=== PATIENT | male | born 1970 | race African-American/Black ===

== ENCOUNTER 2017-03-10 11:00 | Inpatient (IN) | payer OTHER ==
[~2017-03-10] VITALS: Ht 180.3 cm; Wt 98.4 kg
[~2017-03-10 11:00] MED LIST: AMLO10TA80; ASPI-1158; ATOR10TA69; CLON0.2T; DILT360C27 PO; HYDR100T31; MINO2.5T19; QUET100T PO
[2017-03-10] MEDS ORDERED: ONDANSETRON HCL 4MG/2ML VIAL IV STA (11:19)
[2017-03-10] MEDS ORDERED: MORPHINE SULFATE 4 MG/ML CPJ (NOT FOR IM USE) IV STA (11:19)
[2017-03-10] MEDS ORDERED: DILTIAZEM HCL 30MG TABLET PO ONE (11:30)
[2017-03-10] MEDS ORDERED: DILTIAZEM HCL 5MG/ML 5ML VIAL IV ONE (11:30)
[2017-03-10] MEDS ORDERED: IPRATROPIUM BROMIDE (0.02%) 0.5MG/2.5ML NEB HHN ONE (12:15)
[2017-03-10 12:25] LABS: HEMATOCRIT. 30.6 % (42.0-52.0); HEMOGLOBIN. 10.1 g/dL (14.0-18.0); MEAN CORPUSCULAR HEMOGLOBIN 23.8 pg (28.0-32.0); MEAN CORPUSCULAR VOLUME 72.4 fL (80.0-94.0); MEAN PLATELET VOLUME 8.5 fl (7.4-10.4); PLATELET 157 x1000/uL (130-400); RED BLOOD CELL COUNT 4.23 mill/uL (4.7-6.1); RED CELL DISTRIBUTION WIDTH 18.1 % (11.6-14.6)
[2017-03-10 12:34] LABS: INR 1.2; PARTIAL THROMBOPLASTIN TIME 30.3 sec (24.0-34.0); PROTHROMBIN TIME 12.7 sec
[2017-03-10 12:41] LABS: BG BASE EXCESS 1.3 mmol/L (-2.0-2.0); BG CARBOXYHEMOGLOBIN 0.8 % (0.5-1.5); BG DEOXYHEMOGLOBIN 5.7 % (0.0-5.0); BG FRACTION INSPIRED OXYGEN 50; BG HCO3 ACT 25.8 mmol/L (22.0-26.0); BG METHEMOGLOBIN 0.3 % (0.0-1.5); BG OXYGEN SATURATION 94.2 % (92.0-98.5); BG OXYHEMOGLOBIN 93.2 % (94.0-97.0); BG PCO2 40.2 mmHg (35.0-45.0); BG PH 7.425 (7.350-7.450); BG PO2 81.5 mmHg (75.0-100.0); BG SAMPLE SITE LEFT BRACHIAL; BG TOTAL HEMOGLOBIN 10.4 g/dL (12.0-18.0)
[2017-03-10 12:43] LABS: CARBON DIOXIDE 29 mEq/L (21-32); CHLORIDE 99 mEq/L (98-107); CREATINE KINASE 203 IU/L (39-308); TROPONIN I 0.09 ng/mL (0.00-0.04)
[2017-03-10 13:05] LABS: PLATELET ESTIMATE NORMAL
[2017-03-10] MEDS ORDERED: VANCOMYCIN 1 G PREMIX 200 ML IV ONE (13:45)
[2017-03-10] MEDS ORDERED: PIPERACILLIN/TAZ 3.375G PREMIX 50 ML IV ONE (13:45)
[2017-03-10] MEDS ORDERED: HYDROCODONE/ACETAMINOPHEN 5/325MG TABLET PO NR (16:45)
[2017-03-10 18:00] VITALS: BP 113/66
[2017-03-10] MEDS: DILTIAZEM HCL 60MG TABLET PO SCH (18:00)
[2017-03-10] MEDS ORDERED: ONDANSETRON HCL 4MG/2ML VIAL IV PRN (19:00)
[2017-03-10] MEDS ORDERED: ALBUMIN HUMAN 25GM/100ML (25%) IV NR (19:30)
[2017-03-10] MEDS ORDERED: DEXTROSE 50% WATER 50ML SYRINGE IV PRN (20:00)
[2017-03-10] MEDS: INSULIN LISPRO 100 UNITS/ML SUBCUT SCH (21:00)
[2017-03-10] MEDS ORDERED: VANCOMYCIN 1500MG in DEXTROSE 5% WATER 250ML IV NR (21:00)
[2017-03-10] MEDS: ACETAMINOPHEN 325MG TABLET PO PRN (21:14)
[2017-03-10] MEDS: ATORVASTATIN CALCIUM 10MG TABLET PO SCH (21:15)
[2017-03-10] MEDS: PIPERACILLIN/TAZ 2.25G PREMIX 50 ML IV SCH (21:15)
[2017-03-10] MEDS: BLOOD SUGAR DIAGNOSTIC STRIP TEST SCH (21:26)
[2017-03-10 22:00] VITALS: BP 121/66
[2017-03-10] MEDS: MORPHINE SULFATE 4 MG/ML CPJ (NOT FOR IM USE) IV PRN (22:44)
[2017-03-10 23:00] VITALS: BP 107/75
[2017-03-10] MEDS: IPRATROPIUM/ALBUTEROL 0.5-3(2.5)MG/3ML NEB INH PRN (23:57)
[2017-03-11] VITALS (24 sets, daily range): BP systolic 88–139; BP diastolic 48–95
[2017-03-11] MEDS: ACETAMINOPHEN 325MG TABLET PO PRN ×2 (01:31→17:22)
[2017-03-11] MEDS ORDERED: FILGRASTIM 300 MCG/ML VIAL SUBCUT ONE (02:30)
[2017-03-11] MEDS: MORPHINE SULFATE 4 MG/ML CPJ (NOT FOR IM USE) IV PRN ×4 (02:31→20:08)
[2017-03-11] MEDS: DILTIAZEM HCL 60MG TABLET PO SCH ×6 (06:00→23:16)
[2017-03-11 06:44] LABS: HEMATOCRIT. 28.3 % (42.0-52.0); HEMOGLOBIN. 9.1 g/dL (14.0-18.0); MEAN CORPUSCULAR HEMOGLOBIN 23.7 pg (28.0-32.0); MEAN CORPUSCULAR VOLUME 73.8 fL (80.0-94.0); MEAN PLATELET VOLUME 9.4 fl (7.4-10.4); PLATELET 112 x1000/uL (130-400); RED BLOOD CELL COUNT 3.83 mill/uL (4.7-6.1); RED CELL DISTRIBUTION WIDTH 18.2 % (11.6-14.6)
[2017-03-11 06:55] LABS: TROPONIN I 0.07 ng/mL (0.00-0.04)
[2017-03-11 07:13] LABS: PROSTRATE SPECIFIC AG TOTAL 0.32 ng/mL (0.0-4.0)
[2017-03-11] MEDS: IPRATROPIUM/ALBUTEROL 0.5-3(2.5)MG/3ML NEB INH PRN ×2 (07:25→14:55)
[2017-03-11 07:44] LABS: FOLIC ACID (FOLATE) SERUM 5.2 ng/mL (>5.38)
[2017-03-11] MEDS: INSULIN LISPRO 100 UNITS/ML SUBCUT SCH ×4 (08:00→21:00)
[2017-03-11] MEDS: BLOOD SUGAR DIAGNOSTIC STRIP TEST SCH ×4 (08:10→21:00)
[2017-03-11] MEDS: PIPERACILLIN/TAZ 2.25G PREMIX 50 ML IV SCH ×2 (08:22→20:09)
[2017-03-11] MEDS: MINOXIDIL 2.5MG TABLET PO SCH ×2 (08:22→16:23)
[2017-03-11] MEDS ORDERED: ASPIRIN 81MG EC TABLET PO SCH (09:00)
[2017-03-11] MEDS ORDERED: ASPIRIN 81MG TABLET PO SCH (09:00)
[2017-03-11 10:49] LABS: PLATELET ESTIMATE DECREASED
[2017-03-11] MEDS: ATORVASTATIN CALCIUM 10MG TABLET PO SCH (20:09)
[2017-03-11] MEDS: QUETIAPINE FUMARATE 100MG TABLET PO SCH (20:09)
[2017-03-12] VITALS (19 sets, daily range): BP systolic 94–167; BP diastolic 55–140
[2017-03-12] MEDS: MORPHINE SULFATE 4 MG/ML CPJ (NOT FOR IM USE) IV PRN ×3 (05:29→19:48)
[2017-03-12] MEDS: DILTIAZEM HCL 60MG TABLET PO SCH ×3 (05:30→17:52)
[2017-03-12 06:39] LABS: BASOPHILS % 0.6 % (0.0-2.0); EOSINOPHILS % 0.8 % (0.0-5.0); HEMOGLOBIN. 8.3 g/dL (14.0-18.0); LYMPHOCYTES % 9.3 % (20.0-50.0); MEAN CORPUSCULAR HEMOGLOBIN 23.2 pg (28.0-32.0); MEAN CORPUSCULAR VOLUME 73.1 fL (80.0-94.0); MEAN PLATELET VOLUME 9.5 fl (7.4-10.4); MONOCYTES % 8.1 % (2.0-8.0); NEUTROPHILS % 81.2 % (40.0-76.0); PLATELET 115 x1000/uL (130-400); RED BLOOD CELL COUNT 3.56 mill/uL (4.7-6.1); RED CELL DISTRIBUTION WIDTH 17.9 % (11.6-14.6)
[2017-03-12] MEDS: IPRATROPIUM/ALBUTEROL 0.5-3(2.5)MG/3ML NEB INH PRN ×3 (07:23→20:24)
[2017-03-12] MEDS: BLOOD SUGAR DIAGNOSTIC STRIP TEST SCH ×4 (07:30→21:22)
[2017-03-12] MEDS: INSULIN LISPRO 100 UNITS/ML SUBCUT SCH ×4 (08:00→21:00)
[2017-03-12] MEDS: MINOXIDIL 2.5MG TABLET PO SCH ×2 (09:00→17:51)
[2017-03-12] MEDS: PIPERACILLIN/TAZ 2.25G PREMIX 50 ML IV SCH ×2 (09:57→20:50)
[2017-03-12] MEDS ORDERED: LACTULOSE 20G/30ML UDC PO NR (13:00)
[2017-03-12] MEDS ORDERED: DILTIAZEM HCL 5MG/ML 5ML VIAL IV NR (13:00)
[2017-03-12] MEDS ORDERED: DOCUSATE SODIUM 250MG CAPSULE PO PRN (13:00)
[2017-03-12] MEDS ORDERED: VANCOMYCIN 1 G PREMIX 200 ML IV SCH (14:00)
[2017-03-12] MEDS: QUETIAPINE FUMARATE 100MG TABLET PO SCH (17:52)
[2017-03-12] MEDS: ATORVASTATIN CALCIUM 10MG TABLET PO SCH (20:50)
[2017-03-12] MEDS: ACETAMINOPHEN 325MG TABLET PO PRN (22:36)
[2017-03-13] VITALS (50 sets, daily range): BP systolic 110–181; BP diastolic 72–131
[2017-03-13] MEDS: DILTIAZEM HCL 60MG TABLET PO SCH ×3 (00:04→14:06)
[2017-03-13] MEDS: MORPHINE SULFATE 4 MG/ML CPJ (NOT FOR IM USE) IV PRN ×5 (00:04→20:13)
[2017-03-13] MEDS: DILTIAZEM HCL 5MG/ML 5ML VIAL IV PRN ×2 (01:33→06:45)
[2017-03-13] MEDS: IPRATROPIUM/ALBUTEROL 0.5-3(2.5)MG/3ML NEB INH PRN ×2 (04:12)
[2017-03-13 06:30] LABS: BASOPHILS % 1.2 % (0.0-2.0); EOSINOPHILS % 2.2 % (0.0-5.0); HEMATOCRIT. 26.4 % (42.0-52.0); HEMOGLOBIN. 8.6 g/dL (14.0-18.0); LYMPHOCYTES % 10.5 % (20.0-50.0); MEAN CORPUSCULAR HEMOGLOBIN 23.7 pg (28.0-32.0); MEAN CORPUSCULAR VOLUME 72.8 fL (80.0-94.0); MONOCYTES % 6.5 % (2.0-8.0); NEUTROPHILS % 79.6 % (40.0-76.0); PLATELET 119 x1000/uL (130-400); RED BLOOD CELL COUNT 3.62 mill/uL (4.7-6.1)
[2017-03-13] MEDS: BLOOD SUGAR DIAGNOSTIC STRIP TEST SCH ×4 (07:30→21:30)
[2017-03-13 07:51] LABS: HEPATITIS B CORE AB IGM NEGATIVE
[2017-03-13 07:52] LABS: HEPATITIS A AB IGM NEGATIVE (NEGATIVE)
[2017-03-13] MEDS: INSULIN LISPRO 100 UNITS/ML SUBCUT SCH ×4 (08:00→21:00)
[2017-03-13 08:03] LABS: HEPATITIS B SURFACE ANTIGEN NEGATIVE
[2017-03-13] MEDS: PIPERACILLIN/TAZ 2.25G PREMIX 50 ML IV SCH ×2 (08:44→21:30)
[2017-03-13] MEDS: MINOXIDIL 2.5MG TABLET PO SCH ×2 (08:45→18:49)
[2017-03-13] MEDS: DILTIAZEM HCL 125 MG in DEXT 5% WATER 100 ML IV SCH (16:03)
[2017-03-13] MEDS: QUETIAPINE FUMARATE 100MG TABLET PO SCH (18:50)
[2017-03-13] MEDS: ATORVASTATIN CALCIUM 10MG TABLET PO SCH (21:30)
[2017-03-14] VITALS (13 sets, daily range): BP systolic 134–174; BP diastolic 86–130
[2017-03-14] MEDS: MORPHINE SULFATE 4 MG/ML CPJ (NOT FOR IM USE) IV PRN ×5 (01:04→21:53)
[2017-03-14] MEDS: DILTIAZEM HCL 125 MG in DEXT 5% WATER 100 ML IV SCH (03:26)
[2017-03-14 06:54] LABS: BASOPHILS % 0.9 % (0.0-2.0); EOSINOPHILS % 1.8 % (0.0-5.0); HEMATOCRIT. 27.7 % (42.0-52.0); HEMOGLOBIN. 9.2 g/dL (14.0-18.0); LYMPHOCYTES % 10.7 % (20.0-50.0); MEAN CORPUSCULAR HEMOGLOBIN 23.9 pg (28.0-32.0); MEAN CORPUSCULAR VOLUME 71.6 fL (80.0-94.0); MEAN PLATELET VOLUME 9.2 fl (7.4-10.4); MONOCYTES % 4.5 % (2.0-8.0); NEUTROPHILS % 82.1 % (40.0-76.0); PLATELET 127 x1000/uL (130-400); RED BLOOD CELL COUNT 3.86 mill/uL (4.7-6.1); RED CELL DISTRIBUTION WIDTH 17.7 % (11.6-14.6)
[2017-03-14] MEDS: INSULIN LISPRO 100 UNITS/ML SUBCUT SCH ×4 (08:00→21:00)
[2017-03-14] MEDS: BLOOD SUGAR DIAGNOSTIC STRIP TEST SCH ×4 (08:09→20:38)
[2017-03-14] MEDS: PIPERACILLIN/TAZ 2.25G PREMIX 50 ML IV SCH ×2 (08:15→20:38)
[2017-03-14] MEDS: MINOXIDIL 2.5MG TABLET PO SCH ×2 (08:15→17:06)
[2017-03-14] MEDS: DILTIAZEM HCL 60MG TABLET PO SCH ×2 (15:06→21:53)
[2017-03-14] MEDS: CLONIDINE 0.1MG TABLET PO PRN ×3 (15:07→20:38)
[2017-03-14] MEDS: QUETIAPINE FUMARATE 100MG TABLET PO SCH (17:06)
[2017-03-14] MEDS: ATORVASTATIN CALCIUM 10MG TABLET PO SCH (20:38)
[2017-03-14] MEDS: ACETAMINOPHEN 325MG TABLET PO PRN (22:19)
[2017-03-15] VITALS (15 sets, daily range): BP systolic 134–189; BP diastolic 67–129
[2017-03-15] MEDS: DILTIAZEM HCL 60MG TABLET PO SCH (06:04)
[2017-03-15] MEDS: MORPHINE SULFATE 4 MG/ML CPJ (NOT FOR IM USE) IV PRN ×3 (06:19→16:21)
[2017-03-15] MEDS: BLOOD SUGAR DIAGNOSTIC STRIP TEST SCH ×4 (07:30→20:20)
[2017-03-15 07:38] LABS: BASOPHILS % 0.9 % (0.0-2.0); EOSINOPHILS % 2.8 % (0.0-5.0); HEMATOCRIT. 28.8 % (42.0-52.0); HEMOGLOBIN. 9.5 g/dL (14.0-18.0); LYMPHOCYTES % 14.5 % (20.0-50.0); MEAN CORPUSCULAR HEMOGLOBIN 23.9 pg (28.0-32.0); MEAN CORPUSCULAR VOLUME 72.5 fL (80.0-94.0); MEAN PLATELET VOLUME 9.1 fl (7.4-10.4); MONOCYTES % 7.5 % (2.0-8.0); NEUTROPHILS % 74.3 % (40.0-76.0); PLATELET 134 x1000/uL (130-400); RED BLOOD CELL COUNT 3.96 mill/uL (4.7-6.1); RED CELL DISTRIBUTION WIDTH 17.9 % (11.6-14.6)
[2017-03-15] MEDS: INSULIN LISPRO 100 UNITS/ML SUBCUT SCH ×4 (08:00→20:20)
[2017-03-15] MEDS: MINOXIDIL 2.5MG TABLET PO SCH ×2 (08:27→16:26)
[2017-03-15] MEDS: PIPERACILLIN/TAZ 2.25G PREMIX 50 ML IV SCH ×2 (08:28→20:15)
[2017-03-15] MEDS ORDERED: SODIUM POLYSTYRENE SULFONATE 15 G/60 ML BOT PO NR (10:45)
[2017-03-15] MEDS: DILTIAZEM HCL 90MG TABLET PO SCH ×2 (13:44→18:17)
[2017-03-15] MEDS: QUETIAPINE FUMARATE 100MG TABLET PO SCH (16:30)
[2017-03-15] MEDS: ATORVASTATIN CALCIUM 10MG TABLET PO SCH (20:15)
[2017-03-15] MEDS: CLONIDINE 0.1MG TABLET PO PRN (20:15)
[2017-03-15] MEDS ORDERED: DILTIAZEM HCL 125 MG in DEXT 5% WATER 100 ML IV PRN (20:45)
[2017-03-15] MEDS ORDERED: DIGOXIN 500MCG/2ML AMP IV NR (23:15)
[2017-03-15] MEDS: MORPHINE SULFATE 2 MG/ML CPJ (NOT FOR IM USE) IV PRN (23:32)
[2017-03-16] VITALS (30 sets, daily range): BP systolic 128–196; BP diastolic 81–140
[2017-03-16] MEDS ORDERED: CEFTRIAXONE 2 G PREMIX 50 ML IV SCH (01:00)
[2017-03-16] MEDS: MORPHINE SULFATE 2 MG/ML CPJ (NOT FOR IM USE) IV PRN ×4 (04:06→22:46)
[2017-03-16 06:00] LABS: HEMATOCRIT. 28.2 % (42.0-52.0); HEMOGLOBIN. 9.3 g/dL (14.0-18.0); MEAN CORPUSCULAR HEMOGLOBIN 23.8 pg (28.0-32.0); MEAN CORPUSCULAR VOLUME 72.3 fL (80.0-94.0); MEAN PLATELET VOLUME 9.6 fl (7.4-10.4); PLATELET 138 x1000/uL (130-400); RED CELL DISTRIBUTION WIDTH 18.1 % (11.6-14.6)
[2017-03-16] MEDS: DILTIAZEM HCL 125 MG in DEXT 5% WATER 100 ML IV PRN (06:50)
[2017-03-16] MEDS: ACETAMINOPHEN 325MG TABLET PO PRN (06:50)
[2017-03-16] MEDS: BLOOD SUGAR DIAGNOSTIC STRIP TEST SCH ×4 (07:30→21:00)
[2017-03-16] MEDS: INSULIN LISPRO 100 UNITS/ML SUBCUT SCH ×4 (07:39→21:00)
[2017-03-16] MEDS: MINOXIDIL 2.5MG TABLET PO SCH ×2 (09:00→13:18)
[2017-03-16] MEDS: CLONIDINE 0.1MG TABLET PO PRN (13:19)
[2017-03-16] MEDS: METOPROLOL TARTRATE 50MG TABLET PO SCH ×2 (14:44→20:55)
[2017-03-16] MEDS: CLONIDINE 0.2MG TABLET PO SCH ×2 (14:44→20:55)
[2017-03-16 15:15] LABS: PLATELET ESTIMATE NORMAL
[2017-03-16] MEDS: QUETIAPINE FUMARATE 100MG TABLET PO SCH (17:45)
[2017-03-16] MEDS: ATORVASTATIN CALCIUM 10MG TABLET PO SCH (20:54)
[2017-03-17] VITALS (12 sets, daily range): BP systolic 131–175; BP diastolic 90–108
[2017-03-17] MEDS: CEFTRIAXONE 2 G in DEXTROSE 5% WATER 50 ML IV SCH (01:07)
[2017-03-17] MEDS: DILTIAZEM HCL 125 MG in DEXT 5% WATER 100 ML IV PRN (01:10)
[2017-03-17] MEDS: MORPHINE SULFATE 2 MG/ML CPJ (NOT FOR IM USE) IV PRN ×4 (03:05→22:32)
[2017-03-17] MEDS: CLONIDINE 0.2MG TABLET PO SCH ×3 (06:09→21:52)
[2017-03-17] MEDS: CLONIDINE 0.1MG TABLET PO PRN (06:09)
[2017-03-17] MEDS: INSULIN LISPRO 100 UNITS/ML SUBCUT SCH ×4 (08:00→21:00)
[2017-03-17] MEDS: METOPROLOL TARTRATE 50MG TABLET PO SCH (08:17)
[2017-03-17] MEDS: BLOOD SUGAR DIAGNOSTIC STRIP TEST SCH ×4 (08:17→21:52)
[2017-03-17] MEDS: MINOXIDIL 2.5MG TABLET PO SCH ×2 (08:17→17:41)
[2017-03-17] MEDS: DILTIAZEM HCL 90MG TABLET PO SCH ×2 (13:00→17:41)
[2017-03-17 15:26] LABS: HEMATOCRIT. 28.8 % (42.0-52.0); HEMOGLOBIN. 9.6 g/dL (14.0-18.0); MEAN CORPUSCULAR VOLUME 71.9 fL (80.0-94.0); MEAN PLATELET VOLUME 9.4 fl (7.4-10.4); PLATELET 161 x1000/uL (130-400); RED CELL DISTRIBUTION WIDTH 18.2 % (11.6-14.6)
[2017-03-17 16:47] LABS: PLATELET ESTIMATE NORMAL
[2017-03-17] MEDS: DIGOXIN 125MCG TABLET PO SCH (17:41)
[2017-03-17] MEDS: QUETIAPINE FUMARATE 100MG TABLET PO SCH (17:41)
[2017-03-17] MEDS: ATORVASTATIN CALCIUM 10MG TABLET PO SCH (21:51)
[2017-03-17] MEDS: METOPROLOL TARTRATE 100MG TABLET PO SCH (21:52)
[2017-03-18] VITALS (17 sets, daily range): BP systolic 112–156; BP diastolic 67–99
[2017-03-18] MEDS: DILTIAZEM HCL 90MG TABLET PO SCH ×5 (00:29→23:54)
[2017-03-18] MEDS: CEFTRIAXONE 2 G in DEXTROSE 5% WATER 50 ML IV SCH ×2 (00:30→23:56)
[2017-03-18] MEDS: MORPHINE SULFATE 2 MG/ML CPJ (NOT FOR IM USE) IV PRN ×5 (04:53→23:53)
[2017-03-18] MEDS: CLONIDINE 0.2MG TABLET PO SCH ×3 (06:16→22:43)
[2017-03-18 06:44] LABS: HEMATOCRIT. 25.3 % (42.0-52.0); HEMOGLOBIN. 8.5 g/dL (14.0-18.0); MEAN CORPUSCULAR HEMOGLOBIN 23.9 pg (28.0-32.0); MEAN CORPUSCULAR VOLUME 71.1 fL (80.0-94.0); MEAN PLATELET VOLUME 9.2 fl (7.4-10.4); PLATELET 152 x1000/uL (130-400); RED BLOOD CELL COUNT 3.56 mill/uL (4.7-6.1); RED CELL DISTRIBUTION WIDTH 17.8 % (11.6-14.6)
[2017-03-18] MEDS: INSULIN LISPRO 100 UNITS/ML SUBCUT SCH ×4 (08:00→21:00)
[2017-03-18] MEDS: BLOOD SUGAR DIAGNOSTIC STRIP TEST SCH ×4 (08:17→21:00)
[2017-03-18] MEDS: MINOXIDIL 2.5MG TABLET PO SCH ×2 (08:22→18:33)
[2017-03-18] MEDS: METOPROLOL TARTRATE 100MG TABLET PO SCH ×2 (08:23→21:32)
[2017-03-18] MEDS ORDERED: LIDOCAINE HCL 1% 20ML VIAL (Pyxis) INJ ONE (09:00)
[2017-03-18] MEDS ORDERED: SODIUM BICARBONATE 4% (2.4MEQ) 5ML VIAL IV ONE (09:01)
[2017-03-18] MEDS ORDERED: IOHEXOL-300 100 ML BOTTLE ONE (09:01)
[2017-03-18] MEDS ORDERED: CEFAZOLIN 1000MG PREMIX 50 ML IV ONE ×2 (09:03→10:00)
[2017-03-18] MEDS ORDERED: DIPHENHYDRAMINE 50MG/ML VIAL ONE (09:04)
[2017-03-18] MEDS ORDERED: FENTANYL CITRATE/PF 50MCG/ML 2ML VIAL ONE (09:04)
[2017-03-18] MEDS ORDERED: DIPHENHYDRAMINE 50MG/ML VIAL IV ONE (10:00)
[2017-03-18] MEDS ORDERED: FENTANYL CITRATE/PF 50MCG/ML 2ML VIAL IV ONE (10:00)
[2017-03-18 14:34] LABS: PLATELET ESTIMATE NORMAL
[2017-03-18] MEDS: DIGOXIN 125MCG TABLET PO SCH (18:33)
[2017-03-18] MEDS: QUETIAPINE FUMARATE 100MG TABLET PO SCH (18:33)
[2017-03-18] MEDS: ATORVASTATIN CALCIUM 10MG TABLET PO SCH (21:31)
[2017-03-18] MEDS: ACETAMINOPHEN 325MG TABLET PO PRN (23:54)
[2017-03-19] VITALS (12 sets, daily range): BP systolic 117–145; BP diastolic 64–92
[2017-03-19] MEDS: DILTIAZEM HCL 90MG TABLET PO SCH ×4 (05:38→23:47)
[2017-03-19] MEDS: CLONIDINE 0.2MG TABLET PO SCH ×3 (06:00→21:21)
[2017-03-19] MEDS: BLOOD SUGAR DIAGNOSTIC STRIP TEST SCH ×4 (07:30→21:00)
[2017-03-19] MEDS: INSULIN LISPRO 100 UNITS/ML SUBCUT SCH ×4 (08:00→21:00)
[2017-03-19] MEDS: METOPROLOL TARTRATE 100MG TABLET PO SCH (09:00)
[2017-03-19] MEDS: MORPHINE SULFATE 2 MG/ML CPJ (NOT FOR IM USE) IV PRN ×3 (09:01→21:29)
[2017-03-19] MEDS: MINOXIDIL 2.5MG TABLET PO SCH ×2 (09:01→17:17)
[2017-03-19] MEDS: NEOMYCIN-POLYMYXIN-HYDROCORTISONE 1% OTIC SUSP 10ML EACH EAR SCH ×2 (13:21→17:17)
[2017-03-19] MEDS: QUETIAPINE FUMARATE 100MG TABLET PO SCH (17:17)
[2017-03-19] MEDS: METOPROLOL TARTRATE 50MG TABLET PO SCH (21:19)
[2017-03-19] MEDS: ATORVASTATIN CALCIUM 10MG TABLET PO SCH (21:19)
[2017-03-19] MEDS: CEFTRIAXONE 2 G in DEXTROSE 5% WATER 50 ML IV SCH (23:47)
[2017-03-20] VITALS (9 sets, daily range): BP systolic 119–153; BP diastolic 71–96
[2017-03-20] MEDS: MORPHINE SULFATE 2 MG/ML CPJ (NOT FOR IM USE) IV PRN ×2 (04:34→11:44)
[2017-03-20] MEDS: ACETAMINOPHEN 325MG TABLET PO PRN (04:35)
[2017-03-20] MEDS: CLONIDINE 0.2MG TABLET PO SCH (05:44)
[2017-03-20] MEDS: DILTIAZEM HCL 90MG TABLET PO SCH ×2 (05:44→11:42)
[2017-03-20 06:55] LABS: EOSINOPHILS % 1.3 % (0.0-5.0); HEMATOCRIT. 26.8 % (42.0-52.0); HEMOGLOBIN. 8.7 g/dL (14.0-18.0); LYMPHOCYTES % 10.5 % (20.0-50.0); MEAN CORPUSCULAR HEMOGLOBIN 23.5 pg (28.0-32.0); MEAN CORPUSCULAR VOLUME 72.7 fL (80.0-94.0); MEAN PLATELET VOLUME 9.2 fl (7.4-10.4); MONOCYTES % 6.2 % (2.0-8.0); PLATELET 190 x1000/uL (130-400); RED BLOOD CELL COUNT 3.68 mill/uL (4.7-6.1); RED CELL DISTRIBUTION WIDTH 18.1 % (11.6-14.6)
[2017-03-20] MEDS: INSULIN LISPRO 100 UNITS/ML SUBCUT SCH ×2 (08:00→13:00)
[2017-03-20] MEDS: BLOOD SUGAR DIAGNOSTIC STRIP TEST SCH ×2 (08:11→13:18)
[2017-03-20] MEDS: METOPROLOL TARTRATE 50MG TABLET PO SCH (09:00)
[2017-03-20] MEDS: MINOXIDIL 2.5MG TABLET PO SCH (09:00)
[2017-03-20 11:41] LABS: BG BASE EXCESS -0.2 mmol/L (-2.0-2.0); BG CARBOXYHEMOGLOBIN 0.4 % (0.5-1.5); BG DEOXYHEMOGLOBIN 13.4 % (0.0-5.0); BG HCO3 ACT 23.9 mmol/L (22.0-26.0); BG METHEMOGLOBIN 0.3 % (0.0-1.5); BG OXYGEN SATURATION 86.5 % (92.0-98.5); BG OXYHEMOGLOBIN 85.9 % (94.0-97.0); BG PCO2 36.9 mmHg (35.0-45.0); BG PH 7.429 (7.350-7.450); BG PO2 56.8 mmHg (75.0-100.0); BG SAMPLE SITE LEFT RADIAL; BG TOTAL HEMOGLOBIN 10.7 g/dL (12.0-18.0); BG VENT MODE ROOM AIR
[2017-03-20] MEDS: NEOMYCIN-POLYMYXIN-HYDROCORTISONE 1% OTIC SUSP 10ML EACH EAR SCH ×2 (11:42→13:26)
[2017-03-20] MEDS: CLONIDINE 0.1MG TABLET PO PRN (14:58)
== END 2017-03-20 16:35 | disposition home or self-care (01) | DRG 720 ==
LOC: ER 11:00 → 5EST 13:41 → EDBEDREQTM 14:08 → EDBEDREQ 14:08 → EDBEDREQSVC 14:08 → ENRESERV 16:13
PROVIDERS: ADMIT Internal Medicine; ATTEND Internal Medicine
PROC: 5A09357 Assistance with Respiratory Ventilation, Less than 24 Consecutive Hours, Continuous Positive Airway Pressure (ICD-10-PCS; principal; 2017-03-10)
PROC: 5A1D60Z (ICD-10-PCS; 2017-03-10)
PROC: B51W1ZZ Fluoroscopy of Dialysis Shunt/Fistula using Low Osmolar Contrast (ICD-10-PCS; 2017-03-18)
DX: A41.9 Sepsis, unspecified organism (principal); J96.00 Acute respiratory failure, unspecified whether with hypoxia or hypercapnia; I13.2 Hypertensive heart and chronic kidney disease with heart failure and with stage 5 chronic kidney disease, or end stage renal disease; J90 Pleural effusion, not elsewhere classified; D70.9 Neutropenia, unspecified; J18.9 Pneumonia, unspecified organism; N18.6 End stage renal disease; I42.9 Cardiomyopathy, unspecified; D69.6 Thrombocytopenia, unspecified; E11.22 Type 2 diabetes mellitus with diabetic chronic kidney disease; I48.0 Paroxysmal atrial fibrillation; I50.20 Unspecified systolic (congestive) heart failure; D63.1 Anemia in chronic kidney disease; F20.9 Schizophrenia, unspecified; T82.868A Thrombosis due to vascular prosthetic devices, implants and grafts, initial encounter; E03.9 Hypothyroidism, unspecified; Y84.8 Other medical procedures as the cause of abnormal reaction of the patient, or of later complication, without mention of misadventure at the time of the procedure; F12.90 Cannabis use, unspecified, uncomplicated; D63.8 Anemia in other chronic diseases classified elsewhere; Z82.49 Family history of ischemic heart disease and other diseases of the circulatory system; Z99.2 Dependence on renal dialysis; Z88.8 Allergy status to other drugs, medicaments and biological substances
CPT/HCPCS: 36415; 36600; 36901; 71010; 71250; 76700; 80048; 80051; 80053; 80162; 80202; 82375; 82550; 82607; 82728; 82746; 82805; 82962; 83010; 83540; 83550; 83605; 83690; 83735; 83880; 84132; 84153; 84443; 84484; 85014; 85018; 85025; 85044; 85610; 85651; 85730; 86705; 86709; 86803; 87040; 87077; 87186; 87340; 93005; 93306; 93970; 94640; 94660; 96374; 96375; 97162; 99291; C1725; C1769; C1887; J0690; J0696; J1160; J1200; J1442; J1644; J2270; J2405; J2543; J3010; J3370; J3490; J7030; J7050; J7060; J7620; P9047; Q9967

== ENCOUNTER 2017-03-24 09:27 | Inpatient (IN) | payer OTHER ==
[~2017-03-24] VITALS: Ht 180.3 cm; Wt 79.4 kg
[2017-03-24 10:22] LABS: HEMATOCRIT. 23.6 % (42.0-52.0); HEMOGLOBIN. 7.7 g/dL (14.0-18.0); MEAN CORPUSCULAR HEMOGLOBIN 23.5 pg (28.0-32.0); MEAN PLATELET VOLUME 8.6 fl (7.4-10.4); PLATELET 234 x1000/uL (130-400); RED BLOOD CELL COUNT 3.28 mill/uL (4.7-6.1); RED CELL DISTRIBUTION WIDTH 18.1 % (11.6-14.6)
[2017-03-24 10:40] LABS: CARBON DIOXIDE 26 mEq/L (21-32); CHLORIDE 95 mEq/L (98-107)
[2017-03-24 10:51] LABS: PLATELET ESTIMATE NORMAL
[2017-03-24 11:01] LABS: INR 1.3; PROTHROMBIN TIME 13.2 sec
[2017-03-24] MEDS ORDERED: CALCIUM GLUCONATE 1,000 MG in DEXT 5% WATER 100 ML IV ONE (11:15)
[2017-03-24] MEDS ORDERED: DEXTROSE 50% WATER 50ML SYRINGE IV ONE (11:15)
[2017-03-24] MEDS ORDERED: SODIUM BICARBONATE 8.4% 1 MEQ/ML 50ML SYR IV ONE (11:15)
[2017-03-24] MEDS ORDERED: INSULIN REGULAR (HUMULIN R) 300UNITS/3ML IV ONE (11:15)
[2017-03-24] MEDS ORDERED: ALBUTEROL (0.5%) 2.5MG/0.5ML NEB HHN ONE (11:15)
[2017-03-24 13:00] VITALS: BP 118/67
[2017-03-24] MEDS ORDERED: DILT240C3 PO (14:19)
[2017-03-24] MEDS ORDERED: DIGO250T4 PO (14:19)
[2017-03-24] MEDS ORDERED: METO100T5 PO (14:19)
[2017-03-24] MEDS ORDERED: DILT180C3 PO (14:19)
[2017-03-24] MEDS ORDERED: LEVO750T46 PO (14:19)
[2017-03-24] MEDS ORDERED: ENAL20TA PO (14:19)
[2017-03-24] MEDS ORDERED: ACETAMINOPHEN 325MG TABLET PO PRN (14:45)
[2017-03-24] MEDS ORDERED: ONDANSETRON HCL 4MG/2ML VIAL IV PRN (14:45)
[2017-03-24] MEDS ORDERED: LORAZEPAM 2MG/ML CPJ IV PRN (14:45)
[2017-03-24] MEDS ORDERED: DIPHENHYDRAMINE 50MG/ML VIAL IV PRN (14:45)
[2017-03-24] MEDS ORDERED: NA PHOS,M-B/NA PHOS,DI-BA ENEMA 118ML PR PRN (14:45)
[2017-03-24] MEDS ORDERED: DOCUSATE SODIUM 100MG CAPSULE PO PRN (14:45)
[2017-03-24] MEDS ORDERED: DEXTROSE 50% WATER 50ML SYRINGE IV PRN (14:45)
[2017-03-24] MEDS: AMLODIPINE 10MG TABLET PO SCH (15:00)
[2017-03-24] MEDS ORDERED: [UNRECOGNIZED DRUG - OTHER] XX SCH (15:15)
[2017-03-24] MEDS: HYDROCODONE/ACETAMINOPHEN 10/325MG TABLET PO PRN (15:57)
[2017-03-24 16:22] VITALS: BP 105/50
[2017-03-24] MEDS: QUETIAPINE FUMARATE 100MG TABLET PO SCH (16:35)
[2017-03-24] MEDS: BLOOD SUGAR DIAGNOSTIC STRIP TEST SCH ×2 (16:38→21:09)
[2017-03-24] MEDS: CEFTRIAXONE 1 G PREMIX 50 ML IV SCH (17:14)
[2017-03-24] MEDS: INSULIN LISPRO 100 UNITS/ML SUBCUT SCH ×2 (18:58→21:00)
[2017-03-24 19:34] VITALS: BP 95/41
[2017-03-24] MEDS: CLONIDINE 0.1MG TABLET PO SCH (21:00)
[2017-03-24] MEDS: ATORVASTATIN CALCIUM 20MG TABLET PO SCH (21:28)
[2017-03-24] MEDS: HYDROCODONE/ACETAMINOPHEN 5/325MG TABLET PO PRN (21:31)
[2017-03-24] MEDS ORDERED: CLONIDINE 0.2MG TABLET PO SCH (22:00)
[2017-03-25 00:17] VITALS: BP 104/53
[2017-03-25 00:44] LABS: TROPONIN I 0.06 ng/mL (0.00-0.04)
[2017-03-25 04:26] VITALS: BP 105/60
[2017-03-25 06:15] LABS: BASOPHILS % 0.5 % (0.0-2.0); EOSINOPHILS % 0.6 % (0.0-5.0); HEMATOCRIT. 22.6 % (42.0-52.0); HEMOGLOBIN. 7.5 g/dL (14.0-18.0); LYMPHOCYTES % 8.7 % (20.0-50.0); MEAN CORPUSCULAR HEMOGLOBIN 23.9 pg (28.0-32.0); MEAN CORPUSCULAR VOLUME 72.3 fL (80.0-94.0); MEAN PLATELET VOLUME 8.8 fl (7.4-10.4); MONOCYTES % 5.9 % (2.0-8.0); NEUTROPHILS % 84.3 % (40.0-76.0); PLATELET 224 x1000/uL (130-400); RED BLOOD CELL COUNT 3.12 mill/uL (4.7-6.1); RED CELL DISTRIBUTION WIDTH 18.8 % (11.6-14.6)
[2017-03-25] MEDS: BLOOD SUGAR DIAGNOSTIC STRIP TEST SCH ×4 (06:39→21:32)
[2017-03-25 06:52] LABS: TROPONIN I 0.06 ng/mL (0.00-0.04)
[2017-03-25 07:00] LABS: CARBON DIOXIDE 27 mEq/L (21-32); CHLORIDE 95 mEq/L (98-107); HDL CHOLESTEROL 36 mg/dL (40-59); LDL CHOLESTEROL 42 mg/dL (5-100); T4 FREE 0.82 ng/dL (0.76-1.46)
[2017-03-25] MEDS: INSULIN LISPRO 100 UNITS/ML SUBCUT SCH ×4 (07:50→21:00)
[2017-03-25 08:00] VITALS: BP 105/66
[2017-03-25] MEDS: AMLODIPINE 10MG TABLET PO SCH (09:00)
[2017-03-25] MEDS: CLONIDINE 0.1MG TABLET PO SCH ×2 (09:00→21:00)
[2017-03-25] MEDS: ASPIRIN 81MG EC TABLET PO SCH (11:00)
[2017-03-25 16:00] VITALS: BP 137/85
[2017-03-25] MEDS: QUETIAPINE FUMARATE 100MG TABLET PO SCH (16:56)
[2017-03-25] MEDS: CEFTRIAXONE 1 G PREMIX 50 ML IV SCH (17:46)
[2017-03-25 20:00] VITALS: BP 99/77
[2017-03-25] MEDS: HYDROCODONE/ACETAMINOPHEN 10/325MG TABLET PO PRN (20:19)
[2017-03-25] MEDS: METOPROLOL TARTRATE 50MG TABLET PO SCH (21:00)
[2017-03-25] MEDS: ATORVASTATIN CALCIUM 20MG TABLET PO SCH (21:31)
[2017-03-26] VITALS (11 sets, daily range): BP systolic 92–166; BP diastolic 51–98
[2017-03-26] MEDS: BLOOD SUGAR DIAGNOSTIC STRIP TEST SCH ×4 (06:36→21:19)
[2017-03-26 06:47] LABS: EOSINOPHILS % 0.6 % (0.0-5.0); HEMATOCRIT. 23.7 % (42.0-52.0); HEMOGLOBIN. 7.7 g/dL (14.0-18.0); MEAN CORPUSCULAR HEMOGLOBIN 23.7 pg (28.0-32.0); MEAN CORPUSCULAR VOLUME 73.1 fL (80.0-94.0); MEAN PLATELET VOLUME 8.8 fl (7.4-10.4); MONOCYTES % 6.6 % (2.0-8.0); NEUTROPHILS % 82.8 % (40.0-76.0); PLATELET 250 x1000/uL (130-400); RED BLOOD CELL COUNT 3.25 mill/uL (4.7-6.1); RED CELL DISTRIBUTION WIDTH 18.4 % (11.6-14.6)
[2017-03-26] MEDS: INSULIN LISPRO 100 UNITS/ML SUBCUT SCH ×4 (07:50→21:00)
[2017-03-26] MEDS: CLONIDINE 0.1MG TABLET PO SCH ×2 (07:50→21:00)
[2017-03-26] MEDS: METOPROLOL TARTRATE 50MG TABLET PO SCH ×2 (07:51→21:00)
[2017-03-26] MEDS: ASPIRIN 81MG EC TABLET PO SCH (07:51)
[2017-03-26] MEDS: HYDROCODONE/ACETAMINOPHEN 10/325MG TABLET PO PRN (08:11)
[2017-03-26] MEDS: MORPHINE SULFATE 2 MG/ML CPJ (NOT FOR IM USE) IV PRN ×3 (12:51→23:46)
[2017-03-26] MEDS: QUETIAPINE FUMARATE 100MG TABLET PO SCH (16:36)
[2017-03-26] MEDS: CEFTRIAXONE 1 G PREMIX 50 ML IV SCH (16:37)
[2017-03-26] MEDS ORDERED: LORAZEPAM 2MG/ML CPJ IV NR (17:00)
[2017-03-26] MEDS: AMLODIPINE 5MG TABLET PO SCH (21:00)
[2017-03-26] MEDS: ATORVASTATIN CALCIUM 20MG TABLET PO SCH (21:16)
[2017-03-27] VITALS: BP 130/77
[2017-03-27] MEDS: HYDROCODONE/ACETAMINOPHEN 10/325MG TABLET PO PRN ×2 (02:54→09:24)
[2017-03-27 04:00] VITALS: BP 111/70
[2017-03-27] MEDS: MORPHINE SULFATE 2 MG/ML CPJ (NOT FOR IM USE) IV PRN ×4 (04:58→23:30)
[2017-03-27] MEDS: BLOOD SUGAR DIAGNOSTIC STRIP TEST SCH ×4 (06:35→20:57)
[2017-03-27 07:02] LABS: BASOPHILS % 1.2 % (0.0-2.0); EOSINOPHILS % 0.8 % (0.0-5.0); HEMATOCRIT. 23.1 % (42.0-52.0); HEMOGLOBIN. 7.7 g/dL (14.0-18.0); LYMPHOCYTES % 8.5 % (20.0-50.0); MEAN CORPUSCULAR HEMOGLOBIN 23.9 pg (28.0-32.0); MEAN PLATELET VOLUME 8.9 fl (7.4-10.4); MONOCYTES % 8.6 % (2.0-8.0); NEUTROPHILS % 80.9 % (40.0-76.0); PLATELET 213 x1000/uL (130-400); RED BLOOD CELL COUNT 3.21 mill/uL (4.7-6.1); RED CELL DISTRIBUTION WIDTH 18.4 % (11.6-14.6)
[2017-03-27] MEDS: INSULIN LISPRO 100 UNITS/ML SUBCUT SCH ×4 (07:50→20:57)
[2017-03-27 08:02] VITALS: BP 132/84
[2017-03-27] MEDS: ASPIRIN 81MG EC TABLET PO SCH (09:00)
[2017-03-27] MEDS: AMLODIPINE 5MG TABLET PO SCH ×2 (11:22→20:55)
[2017-03-27] MEDS: METOPROLOL TARTRATE 50MG TABLET PO SCH ×2 (11:22→20:55)
[2017-03-27] MEDS: CLONIDINE 0.1MG TABLET PO SCH ×2 (11:22→20:55)
[2017-03-27] MEDS ORDERED: MORPHINE SULFATE 4 MG/ML CPJ (NOT FOR IM USE) IV NR ×2 (11:45→16:00)
[2017-03-27 12:00] VITALS: BP 155/97
[2017-03-27 16:00] VITALS: BP 147/92
[2017-03-27] MEDS: QUETIAPINE FUMARATE 100MG TABLET PO SCH (16:29)
[2017-03-27] MEDS: CEFTRIAXONE 1 G PREMIX 50 ML IV SCH (17:53)
[2017-03-27 20:00] VITALS: BP 123/82
[2017-03-27] MEDS: IPRATROPIUM/ALBUTEROL 0.5-3(2.5)MG/3ML NEB INH PRN (20:34)
[2017-03-27] MEDS: ATORVASTATIN CALCIUM 20MG TABLET PO SCH (20:54)
[2017-03-28] VITALS: BP 143/103
[2017-03-28 04:00] VITALS: BP 165/123
[2017-03-28] MEDS: CLONIDINE 0.1MG TABLET PO PRN ×2 (04:01→16:33)
[2017-03-28] MEDS: MORPHINE SULFATE 2 MG/ML CPJ (NOT FOR IM USE) IV PRN ×4 (04:02→22:30)
[2017-03-28 06:30] LABS: BASOPHILS % 1.5 % (0.0-2.0); EOSINOPHILS % 0.6 % (0.0-5.0); HEMATOCRIT. 23.6 % (42.0-52.0); HEMOGLOBIN. 7.8 g/dL (14.0-18.0); LYMPHOCYTES % 10.8 % (20.0-50.0); MEAN CORPUSCULAR HEMOGLOBIN 23.9 pg (28.0-32.0); MEAN CORPUSCULAR VOLUME 72.8 fL (80.0-94.0); MEAN PLATELET VOLUME 8.9 fl (7.4-10.4); MONOCYTES % 9.5 % (2.0-8.0); NEUTROPHILS % 77.6 % (40.0-76.0); PLATELET 253 x1000/uL (130-400); RED BLOOD CELL COUNT 3.24 mill/uL (4.7-6.1); RED CELL DISTRIBUTION WIDTH 18.7 % (11.6-14.6)
[2017-03-28] MEDS: BLOOD SUGAR DIAGNOSTIC STRIP TEST SCH ×4 (06:37→21:11)
[2017-03-28] MEDS: IPRATROPIUM/ALBUTEROL 0.5-3(2.5)MG/3ML NEB INH PRN (07:04)
[2017-03-28] MEDS: INSULIN LISPRO 100 UNITS/ML SUBCUT SCH ×4 (07:39→21:00)
[2017-03-28 07:53] VITALS: BP 174/110
[2017-03-28] MEDS: ASPIRIN 81MG EC TABLET PO SCH (08:05)
[2017-03-28] MEDS: CLONIDINE 0.1MG TABLET PO SCH ×2 (08:05→21:00)
[2017-03-28] MEDS: METOPROLOL TARTRATE 50MG TABLET PO SCH ×3 (08:05→21:00)
[2017-03-28] MEDS: AMLODIPINE 5MG TABLET PO SCH ×3 (08:05→21:21)
[2017-03-28] MEDS ORDERED: SODIUM BICARBONATE 4.2% 5 MEQ/10 ML DISP.SYRIN IV ONE (09:25)
[2017-03-28 12:00] VITALS: BP 157/98
[2017-03-28 16:00] VITALS: BP 162/87
[2017-03-28] MEDS: QUETIAPINE FUMARATE 100MG TABLET PO SCH (16:32)
[2017-03-28] MEDS: CEFTRIAXONE 1 G PREMIX 50 ML IV SCH (17:49)
[2017-03-28 19:38] VITALS: BP 121/77
[2017-03-28] MEDS: ATORVASTATIN CALCIUM 20MG TABLET PO SCH (21:20)
[2017-03-29] VITALS (7 sets, daily range): BP systolic 128–150; BP diastolic 80–115
[2017-03-29] MEDS: HYDROCODONE/ACETAMINOPHEN 5/325MG TABLET PO PRN (00:04)
[2017-03-29] MEDS: MORPHINE SULFATE 2 MG/ML CPJ (NOT FOR IM USE) IV PRN ×4 (03:03→21:19)
[2017-03-29] MEDS: BLOOD SUGAR DIAGNOSTIC STRIP TEST SCH ×4 (06:06→21:00)
[2017-03-29 07:23] LABS: BASOPHILS % 1.4 % (0.0-2.0); EOSINOPHILS % 0.7 % (0.0-5.0); HEMATOCRIT. 22.5 % (42.0-52.0); HEMOGLOBIN. 7.5 g/dL (14.0-18.0); LYMPHOCYTES % 16.6 % (20.0-50.0); MEAN CORPUSCULAR HEMOGLOBIN 24.2 pg (28.0-32.0); MEAN CORPUSCULAR VOLUME 73.1 fL (80.0-94.0); MEAN PLATELET VOLUME 8.8 fl (7.4-10.4); MONOCYTES % 12.1 % (2.0-8.0); NEUTROPHILS % 69.2 % (40.0-76.0); PLATELET 213 x1000/uL (130-400); RED BLOOD CELL COUNT 3.08 mill/uL (4.7-6.1)
[2017-03-29] MEDS: INSULIN LISPRO 100 UNITS/ML SUBCUT SCH ×4 (07:33→21:00)
[2017-03-29] MEDS: METOPROLOL TARTRATE 50MG TABLET PO SCH ×3 (08:03→22:56)
[2017-03-29] MEDS: ASPIRIN 81MG EC TABLET PO SCH (08:03)
[2017-03-29] MEDS: AMLODIPINE 5MG TABLET PO SCH ×2 (08:04→21:18)
[2017-03-29] MEDS: CLONIDINE 0.1MG TABLET PO SCH ×3 (08:04→22:56)
[2017-03-29] MEDS ORDERED: SODIUM POLYSTYRENE SULFONATE 15 G/60 ML BOT PO SCH (09:00)
[2017-03-29] MEDS: QUETIAPINE FUMARATE 100MG TABLET PO SCH (16:23)
[2017-03-29] MEDS: CEFTRIAXONE 1 G PREMIX 50 ML IV SCH (18:17)
[2017-03-29] MEDS: ATORVASTATIN CALCIUM 20MG TABLET PO SCH (21:18)
[2017-03-30] VITALS (11 sets, daily range): BP systolic 127–176; BP diastolic 76–97
[2017-03-30] MEDS: MORPHINE SULFATE 2 MG/ML CPJ (NOT FOR IM USE) IV PRN ×4 (02:11→23:35)
[2017-03-30] MEDS: CLONIDINE 0.1MG TABLET PO SCH ×3 (06:00→21:25)
[2017-03-30] MEDS: METOPROLOL TARTRATE 50MG TABLET PO SCH ×2 (06:00→13:54)
[2017-03-30] MEDS: BLOOD SUGAR DIAGNOSTIC STRIP TEST SCH ×4 (06:32→20:28)
[2017-03-30 06:44] LABS: BASOPHILS % 2.1 % (0.0-2.0); EOSINOPHILS % 1.1 % (0.0-5.0); LYMPHOCYTES % 14.5 % (20.0-50.0); MEAN CORPUSCULAR HEMOGLOBIN 24.4 pg (28.0-32.0); MEAN CORPUSCULAR VOLUME 73.5 fL (80.0-94.0); MEAN PLATELET VOLUME 8.7 fl (7.4-10.4); MONOCYTES % 12.3 % (2.0-8.0); PLATELET 171 x1000/uL (130-400); RED BLOOD CELL COUNT 2.72 mill/uL (4.7-6.1); RED CELL DISTRIBUTION WIDTH 18.7 % (11.6-14.6)
[2017-03-30 07:47] LABS: HEMOGLOBIN. 6.6 g/dL (14.0-18.0)
[2017-03-30] MEDS: INSULIN LISPRO 100 UNITS/ML SUBCUT SCH ×4 (07:50→20:29)
[2017-03-30] MEDS: ASPIRIN 81MG EC TABLET PO SCH (08:24)
[2017-03-30] MEDS: AMLODIPINE 5MG TABLET PO SCH (09:00)
[2017-03-30] MEDS: LORAZEPAM 2MG/ML CPJ IV PRN (09:15)
[2017-03-30] MEDS: SILDENAFIL CITRATE 20MG TABLET PO SCH ×2 (14:26→21:25)
[2017-03-30] MEDS: QUETIAPINE FUMARATE 100MG TABLET PO SCH (16:20)
[2017-03-30] MEDS: DILTIAZEM HCL 60MG TABLET PO SCH ×2 (16:21→21:25)
[2017-03-30] MEDS: CEFTRIAXONE 1 G PREMIX 50 ML IV SCH (17:16)
[2017-03-30] MEDS: ATORVASTATIN CALCIUM 20MG TABLET PO SCH (21:24)
[2017-03-31] VITALS: BP 110/76
[2017-03-31] MEDS: MORPHINE SULFATE 2 MG/ML CPJ (NOT FOR IM USE) IV PRN ×4 (03:47→22:53)
[2017-03-31 04:00] VITALS: BP 128/88
[2017-03-31] MEDS: SILDENAFIL CITRATE 20MG TABLET PO SCH ×3 (05:30→21:54)
[2017-03-31] MEDS: DILTIAZEM HCL 60MG TABLET PO SCH ×3 (05:30→21:54)
[2017-03-31] MEDS: CLONIDINE 0.1MG TABLET PO SCH ×3 (05:31→21:54)
[2017-03-31] MEDS: BLOOD SUGAR DIAGNOSTIC STRIP TEST SCH ×4 (06:46→21:58)
[2017-03-31] MEDS: INSULIN LISPRO 100 UNITS/ML SUBCUT SCH ×4 (07:50→21:00)
[2017-03-31] MEDS: ASPIRIN 81MG EC TABLET PO SCH (08:14)
[2017-03-31 08:17] VITALS: BP 121/85
[2017-03-31 13:07] LABS: BASOPHILS % 1.4 % (0.0-2.0); EOSINOPHILS % 0.9 % (0.0-5.0); HEMATOCRIT. 25.2 % (42.0-52.0); HEMOGLOBIN. 8.2 g/dL (14.0-18.0); LYMPHOCYTES % 15.3 % (20.0-50.0); MEAN CORPUSCULAR HEMOGLOBIN 24.1 pg (28.0-32.0); MEAN PLATELET VOLUME 8.1 fl (7.4-10.4); MONOCYTES % 12.6 % (2.0-8.0); NEUTROPHILS % 69.8 % (40.0-76.0); PLATELET 158 x1000/uL (130-400); RED BLOOD CELL COUNT 3.41 mill/uL (4.7-6.1); RED CELL DISTRIBUTION WIDTH 18.4 % (11.6-14.6)
[2017-03-31 13:30] VITALS: BP 154/107
[2017-03-31 16:25] VITALS: BP 153/92
[2017-03-31] MEDS: CEFTRIAXONE 1 G PREMIX 50 ML IV SCH (17:45)
[2017-03-31] MEDS: QUETIAPINE FUMARATE 100MG TABLET PO SCH (17:45)
[2017-03-31 20:57] VITALS: BP 124/65
[2017-03-31] MEDS: ATORVASTATIN CALCIUM 20MG TABLET PO SCH (21:54)
[2017-04-01] VITALS (13 sets, daily range): BP systolic 98–158; BP diastolic 64–98
[2017-04-01] MEDS: MORPHINE SULFATE 2 MG/ML CPJ (NOT FOR IM USE) IV PRN ×3 (04:51→21:53)
[2017-04-01 06:29] LABS: BASOPHILS % 1.7 % (0.0-2.0); EOSINOPHILS % 1.6 % (0.0-5.0); HEMATOCRIT. 23.2 % (42.0-52.0); HEMOGLOBIN. 7.6 g/dL (14.0-18.0); LYMPHOCYTES % 15.3 % (20.0-50.0); MEAN CORPUSCULAR HEMOGLOBIN 24.2 pg (28.0-32.0); MEAN CORPUSCULAR VOLUME 74.1 fL (80.0-94.0); MONOCYTES % 11.2 % (2.0-8.0); NEUTROPHILS % 70.2 % (40.0-76.0); PLATELET 152 x1000/uL (130-400); RED BLOOD CELL COUNT 3.13 mill/uL (4.7-6.1); RED CELL DISTRIBUTION WIDTH 18.4 % (11.6-14.6)
[2017-04-01] MEDS: DILTIAZEM HCL 60MG TABLET PO SCH ×4 (06:40→21:30)
[2017-04-01] MEDS: SILDENAFIL CITRATE 20MG TABLET PO SCH ×4 (06:41→21:30)
[2017-04-01] MEDS: CLONIDINE 0.1MG TABLET PO SCH ×4 (06:41→21:30)
[2017-04-01] MEDS: BLOOD SUGAR DIAGNOSTIC STRIP TEST SCH ×4 (06:43→20:51)
[2017-04-01] MEDS: INSULIN LISPRO 100 UNITS/ML SUBCUT SCH ×4 (07:04→20:51)
[2017-04-01] MEDS: LORAZEPAM 2MG/ML CPJ IV PRN (08:56)
[2017-04-01] MEDS: ASPIRIN 81MG EC TABLET PO SCH (08:56)
[2017-04-01] MEDS: QUETIAPINE FUMARATE 100MG TABLET PO SCH (16:44)
[2017-04-01] MEDS: ATORVASTATIN CALCIUM 20MG TABLET PO SCH (21:30)
[2017-04-02] VITALS (8 sets, daily range): BP systolic 115–170; BP diastolic 80–116
[2017-04-02] MEDS: MORPHINE SULFATE 2 MG/ML CPJ (NOT FOR IM USE) IV PRN ×4 (01:55→21:10)
[2017-04-02] MEDS: DILTIAZEM HCL 60MG TABLET PO SCH ×3 (06:26→21:08)
[2017-04-02] MEDS: CLONIDINE 0.1MG TABLET PO SCH ×3 (06:27→21:08)
[2017-04-02] MEDS: SILDENAFIL CITRATE 20MG TABLET PO SCH ×3 (06:27→21:09)
[2017-04-02] MEDS: BLOOD SUGAR DIAGNOSTIC STRIP TEST SCH ×4 (06:28→21:08)
[2017-04-02 06:52] LABS: BASOPHILS % 1.6 % (0.0-2.0); EOSINOPHILS % 2.7 % (0.0-5.0); LYMPHOCYTES % 14.5 % (20.0-50.0); MEAN CORPUSCULAR HEMOGLOBIN 25.8 pg (28.0-32.0); MEAN CORPUSCULAR VOLUME 74.7 fL (80.0-94.0); MEAN PLATELET VOLUME 8.5 fl (7.4-10.4); MONOCYTES % 10.8 % (2.0-8.0); NEUTROPHILS % 70.4 % (40.0-76.0); PLATELET 141 x1000/uL (130-400); RED BLOOD CELL COUNT 3.48 mill/uL (4.7-6.1); RED CELL DISTRIBUTION WIDTH 18.6 % (11.6-14.6)
[2017-04-02] MEDS: INSULIN LISPRO 100 UNITS/ML SUBCUT SCH ×4 (07:50→21:00)
[2017-04-02] MEDS: ASPIRIN 81MG EC TABLET PO SCH (08:42)
[2017-04-02] MEDS ORDERED: SODIUM BICARBONATE 4.2% 5 MEQ/10 ML DISP.SYRIN IV ONE (13:00)
[2017-04-02] MEDS: LORAZEPAM 2MG/ML CPJ IV PRN (13:25)
[2017-04-02] MEDS: QUETIAPINE FUMARATE 100MG TABLET PO SCH (16:58)
[2017-04-02] MEDS: ATORVASTATIN CALCIUM 20MG TABLET PO SCH (21:07)
[2017-04-03] VITALS: BP 163/110
[2017-04-03] MEDS: CLONIDINE 0.1MG TABLET PO PRN (01:07)
[2017-04-03] MEDS: MORPHINE SULFATE 2 MG/ML CPJ (NOT FOR IM USE) IV PRN ×5 (01:09→21:15)
[2017-04-03 04:00] VITALS: BP 150/94
[2017-04-03] MEDS: DILTIAZEM HCL 60MG TABLET PO SCH ×4 (05:13→21:50)
[2017-04-03] MEDS: CLONIDINE 0.1MG TABLET PO SCH ×3 (05:14→21:50)
[2017-04-03] MEDS: SILDENAFIL CITRATE 20MG TABLET PO SCH ×3 (05:14→21:50)
[2017-04-03 05:59] LABS: BASOPHILS % 1.6 % (0.0-2.0); EOSINOPHILS % 3.2 % (0.0-5.0); HEMATOCRIT. 25.3 % (42.0-52.0); HEMOGLOBIN. 8.4 g/dL (14.0-18.0); LYMPHOCYTES % 13.7 % (20.0-50.0); MEAN CORPUSCULAR VOLUME 75.6 fL (80.0-94.0); MEAN PLATELET VOLUME 8.9 fl (7.4-10.4); MONOCYTES % 9.9 % (2.0-8.0); NEUTROPHILS % 71.6 % (40.0-76.0); PLATELET 147 x1000/uL (130-400); RED BLOOD CELL COUNT 3.35 mill/uL (4.7-6.1)
[2017-04-03] MEDS: BLOOD SUGAR DIAGNOSTIC STRIP TEST SCH ×4 (06:58→21:20)
[2017-04-03] MEDS: INSULIN LISPRO 100 UNITS/ML SUBCUT SCH ×4 (07:50→21:00)
[2017-04-03 08:00] VITALS: BP 135/97
[2017-04-03] MEDS: ASPIRIN 81MG EC TABLET PO SCH (08:46)
[2017-04-03 12:27] VITALS: BP 159/81
[2017-04-03 16:22] VITALS: BP 163/95
[2017-04-03] MEDS: QUETIAPINE FUMARATE 100MG TABLET PO SCH (17:02)
[2017-04-03] MEDS ORDERED: DILTIAZEM HCL 5MG/ML 5ML VIAL IV PRN ×2 (18:00→18:15)
[2017-04-03] MEDS ORDERED: DILTIAZEM HCL 5MG/ML 5ML VIAL IV NR (18:00)
[2017-04-03] MEDS ORDERED: DILTIAZEM HCL 5MG/ML 5ML VIAL IV ONE (18:06)
[2017-04-03 20:00] VITALS: BP 115/82
[2017-04-03] MEDS: ATORVASTATIN CALCIUM 20MG TABLET PO SCH (21:14)
[2017-04-04] VITALS: BP 103/74
[2017-04-04] MEDS: MORPHINE SULFATE 2 MG/ML CPJ (NOT FOR IM USE) IV PRN ×4 (03:51→19:53)
[2017-04-04 04:00] VITALS: BP 110/80
[2017-04-04] MEDS: DILTIAZEM HCL 60MG TABLET PO SCH (05:25)
[2017-04-04] MEDS: CLONIDINE 0.1MG TABLET PO SCH ×3 (05:26→21:16)
[2017-04-04] MEDS: SILDENAFIL CITRATE 20MG TABLET PO SCH ×3 (05:29→21:15)
[2017-04-04] MEDS: BLOOD SUGAR DIAGNOSTIC STRIP TEST SCH ×4 (06:21→21:28)
[2017-04-04 07:10] LABS: BASOPHILS % 1.3 % (0.0-2.0); EOSINOPHILS % 3.3 % (0.0-5.0); HEMATOCRIT. 26.2 % (42.0-52.0); HEMOGLOBIN. 8.6 g/dL (14.0-18.0); LYMPHOCYTES % 12.6 % (20.0-50.0); MEAN CORPUSCULAR HEMOGLOBIN 24.8 pg (28.0-32.0); MEAN CORPUSCULAR VOLUME 75.6 fL (80.0-94.0); MEAN PLATELET VOLUME 8.9 fl (7.4-10.4); MONOCYTES % 9.3 % (2.0-8.0); NEUTROPHILS % 73.5 % (40.0-76.0); PLATELET 153 x1000/uL (130-400); RED BLOOD CELL COUNT 3.47 mill/uL (4.7-6.1); RED CELL DISTRIBUTION WIDTH 18.7 % (11.6-14.6)
[2017-04-04] MEDS: INSULIN LISPRO 100 UNITS/ML SUBCUT SCH ×4 (07:21→21:00)
[2017-04-04 08:00] VITALS: BP 137/98
[2017-04-04] MEDS: ASPIRIN 81MG EC TABLET PO SCH (08:37)
[2017-04-04 15:31] VITALS: BP 129/97
[2017-04-04] MEDS: QUETIAPINE FUMARATE 100MG TABLET PO SCH (17:06)
[2017-04-04] MEDS: DILTIAZEM HCL 90MG TABLET PO SCH (17:07)
[2017-04-04] MEDS: ATORVASTATIN CALCIUM 20MG TABLET PO SCH (19:53)
[2017-04-04 20:00] VITALS: BP 150/118
[2017-04-05] VITALS: BP 115/78
[2017-04-05] MEDS: DILTIAZEM HCL 90MG TABLET PO SCH ×5 (00:13→23:29)
[2017-04-05] MEDS: MORPHINE SULFATE 2 MG/ML CPJ (NOT FOR IM USE) IV PRN ×6 (00:14→23:29)
[2017-04-05 04:00] VITALS: BP 116/60
[2017-04-05] MEDS: CLONIDINE 0.1MG TABLET PO SCH ×3 (05:30→21:00)
[2017-04-05] MEDS: SILDENAFIL CITRATE 20MG TABLET PO SCH ×3 (05:30→21:00)
[2017-04-05] MEDS: BLOOD SUGAR DIAGNOSTIC STRIP TEST SCH ×4 (06:30→21:00)
[2017-04-05 07:00] LABS: BASOPHILS % 1.3 % (0.0-2.0); EOSINOPHILS % 3.9 % (0.0-5.0); HEMATOCRIT. 23.2 % (42.0-52.0); HEMOGLOBIN. 7.7 g/dL (14.0-18.0); LYMPHOCYTES % 14.2 % (20.0-50.0); MEAN CORPUSCULAR HEMOGLOBIN 25.1 pg (28.0-32.0); MEAN CORPUSCULAR VOLUME 75.5 fL (80.0-94.0); MEAN PLATELET VOLUME 8.7 fl (7.4-10.4); NEUTROPHILS % 68.6 % (40.0-76.0); PLATELET 135 x1000/uL (130-400); RED BLOOD CELL COUNT 3.07 mill/uL (4.7-6.1); RED CELL DISTRIBUTION WIDTH 18.7 % (11.6-14.6)
[2017-04-05] MEDS: INSULIN LISPRO 100 UNITS/ML SUBCUT SCH ×4 (07:50→21:00)
[2017-04-05 08:00] VITALS: BP 125/87
[2017-04-05 08:02] LABS: CARBON DIOXIDE 26 mEq/L (21-32); CHLORIDE 100 mEq/L (98-107)
[2017-04-05] MEDS: ASPIRIN 81MG EC TABLET PO SCH (08:23)
[2017-04-05 12:00] VITALS: BP 122/79
[2017-04-05 16:00] VITALS: BP 117/77
[2017-04-05] MEDS: QUETIAPINE FUMARATE 100MG TABLET PO SCH (17:39)
[2017-04-05 20:00] VITALS: BP 149/96
[2017-04-05] MEDS: ATORVASTATIN CALCIUM 20MG TABLET PO SCH (20:59)
[2017-04-06] VITALS (11 sets, daily range): BP systolic 66–153; BP diastolic 41–107
[2017-04-06] MEDS: MORPHINE SULFATE 2 MG/ML CPJ (NOT FOR IM USE) IV PRN ×5 (04:29→22:07)
[2017-04-06] MEDS: CLONIDINE 0.1MG TABLET PO SCH ×3 (05:21→22:05)
[2017-04-06] MEDS: DILTIAZEM HCL 90MG TABLET PO SCH ×4 (05:21→18:56)
[2017-04-06] MEDS: SILDENAFIL CITRATE 20MG TABLET PO SCH ×3 (05:22→22:06)
[2017-04-06] MEDS: BLOOD SUGAR DIAGNOSTIC STRIP TEST SCH ×4 (06:24→21:15)
[2017-04-06 06:40] LABS: BASOPHILS % 1.5 % (0.0-2.0); EOSINOPHILS % 3.4 % (0.0-5.0); HEMOGLOBIN. 7.7 g/dL (14.0-18.0); LYMPHOCYTES % 13.1 % (20.0-50.0); MEAN CORPUSCULAR HEMOGLOBIN 25.3 pg (28.0-32.0); MEAN CORPUSCULAR VOLUME 75.5 fL (80.0-94.0); MEAN PLATELET VOLUME 8.8 fl (7.4-10.4); MONOCYTES % 10.1 % (2.0-8.0); NEUTROPHILS % 71.9 % (40.0-76.0); PLATELET 139 x1000/uL (130-400); RED BLOOD CELL COUNT 3.05 mill/uL (4.7-6.1); RED CELL DISTRIBUTION WIDTH 18.8 % (11.6-14.6)
[2017-04-06] MEDS: INSULIN LISPRO 100 UNITS/ML SUBCUT SCH ×4 (07:50→21:00)
[2017-04-06] MEDS: ASPIRIN 81MG EC TABLET PO SCH (08:43)
[2017-04-06] MEDS ORDERED: SODIUM POLYSTYRENE SULFONATE 15 G/60 ML BOT PO NR (18:30)
[2017-04-06] MEDS: QUETIAPINE FUMARATE 100MG TABLET PO SCH (18:56)
[2017-04-06] MEDS: ATORVASTATIN CALCIUM 20MG TABLET PO SCH (22:06)
[2017-04-07] VITALS (14 sets, daily range): BP systolic 120–170; BP diastolic 64–105
[2017-04-07] MEDS: DILTIAZEM HCL 90MG TABLET PO SCH ×5 (01:17→22:09)
[2017-04-07] MEDS: MORPHINE SULFATE 2 MG/ML CPJ (NOT FOR IM USE) IV PRN ×4 (05:03→17:44)
[2017-04-07 05:56] LABS: BASOPHILS % 1.5 % (0.0-2.0); EOSINOPHILS % 3.6 % (0.0-5.0); HEMATOCRIT. 24.8 % (42.0-52.0); HEMOGLOBIN. 8.1 g/dL (14.0-18.0); LYMPHOCYTES % 12.8 % (20.0-50.0); MEAN CORPUSCULAR HEMOGLOBIN 24.8 pg (28.0-32.0); MEAN CORPUSCULAR VOLUME 76.2 fL (80.0-94.0); MEAN PLATELET VOLUME 8.7 fl (7.4-10.4); NEUTROPHILS % 71.1 % (40.0-76.0); PLATELET 147 x1000/uL (130-400); RED BLOOD CELL COUNT 3.26 mill/uL (4.7-6.1); RED CELL DISTRIBUTION WIDTH 18.6 % (11.6-14.6)
[2017-04-07] MEDS: SILDENAFIL CITRATE 20MG TABLET PO SCH ×3 (06:27→22:11)
[2017-04-07] MEDS: BLOOD SUGAR DIAGNOSTIC STRIP TEST SCH ×4 (06:27→21:00)
[2017-04-07] MEDS: CLONIDINE 0.1MG TABLET PO SCH ×3 (06:27→22:09)
[2017-04-07] MEDS: INSULIN LISPRO 100 UNITS/ML SUBCUT SCH ×3 (07:50→21:00)
[2017-04-07] MEDS: ASPIRIN 81MG EC TABLET PO SCH (10:04)
[2017-04-07] MEDS: QUETIAPINE FUMARATE 100MG TABLET PO SCH (17:44)
[2017-04-07] MEDS: ATORVASTATIN CALCIUM 20MG TABLET PO SCH (22:09)
[2017-04-08] VITALS (7 sets, daily range): BP systolic 121–140; BP diastolic 64–93
[2017-04-08] MEDS: MORPHINE SULFATE 2 MG/ML CPJ (NOT FOR IM USE) IV PRN ×4 (01:40→14:23)
[2017-04-08] MEDS: SILDENAFIL CITRATE 20MG TABLET PO SCH ×3 (06:09→21:01)
[2017-04-08] MEDS: DILTIAZEM HCL 90MG TABLET PO SCH ×4 (06:09→23:16)
[2017-04-08] MEDS: BLOOD SUGAR DIAGNOSTIC STRIP TEST SCH ×4 (06:09→20:50)
[2017-04-08] MEDS: CLONIDINE 0.1MG TABLET PO SCH ×3 (06:12→21:00)
[2017-04-08 07:02] LABS: BASOPHILS % 1.4 % (0.0-2.0); EOSINOPHILS % 3.1 % (0.0-5.0); HEMATOCRIT. 29.7 % (42.0-52.0); HEMOGLOBIN. 9.7 g/dL (14.0-18.0); LYMPHOCYTES % 14.2 % (20.0-50.0); MEAN CORPUSCULAR HEMOGLOBIN 25.3 pg (28.0-32.0); MEAN CORPUSCULAR VOLUME 77.5 fL (80.0-94.0); MEAN PLATELET VOLUME 8.8 fl (7.4-10.4); MONOCYTES % 11.1 % (2.0-8.0); NEUTROPHILS % 70.2 % (40.0-76.0); PLATELET 154 x1000/uL (130-400); RED BLOOD CELL COUNT 3.84 mill/uL (4.7-6.1); RED CELL DISTRIBUTION WIDTH 17.9 % (11.6-14.6)
[2017-04-08] MEDS: INSULIN LISPRO 100 UNITS/ML SUBCUT SCH ×4 (07:43→20:50)
[2017-04-08] MEDS: ASPIRIN 81MG EC TABLET PO SCH (08:02)
[2017-04-08] MEDS: QUETIAPINE FUMARATE 100MG TABLET PO SCH (17:16)
[2017-04-08] MEDS ORDERED: MORPHINE SULFATE 4 MG/ML CPJ (NOT FOR IM USE) IV PRN (18:30)
[2017-04-08] MEDS: MORPHINE SULFATE 4 MG/ML CPJ (NOT FOR IM USE) IV PRN ×2 (18:37→22:16)
[2017-04-08] MEDS: ATORVASTATIN CALCIUM 20MG TABLET PO SCH (21:00)
[2017-04-09] VITALS: BP 122/79
[2017-04-09] MEDS: MORPHINE SULFATE 4 MG/ML CPJ (NOT FOR IM USE) IV PRN ×5 (02:40→21:01)
[2017-04-09 04:00] VITALS: BP 106/80
[2017-04-09] MEDS: DILTIAZEM HCL 90MG TABLET PO SCH (05:04)
[2017-04-09] MEDS: CLONIDINE 0.1MG TABLET PO SCH ×3 (05:05→21:00)
[2017-04-09] MEDS: SILDENAFIL CITRATE 20MG TABLET PO SCH ×3 (05:05→21:01)
[2017-04-09] MEDS: BLOOD SUGAR DIAGNOSTIC STRIP TEST SCH (06:21)
[2017-04-09 07:11] LABS: BASOPHILS % 1.3 % (0.0-2.0); EOSINOPHILS % 2.8 % (0.0-5.0); LYMPHOCYTES % 14.3 % (20.0-50.0); MEAN CORPUSCULAR HEMOGLOBIN 25.3 pg (28.0-32.0); MEAN PLATELET VOLUME 8.7 fl (7.4-10.4); MONOCYTES % 10.8 % (2.0-8.0); NEUTROPHILS % 70.8 % (40.0-76.0); PLATELET 155 x1000/uL (130-400); RED BLOOD CELL COUNT 3.95 mill/uL (4.7-6.1); RED CELL DISTRIBUTION WIDTH 18.1 % (11.6-14.6)
[2017-04-09 08:00] VITALS: BP 132/91
[2017-04-09 11:56] VITALS: BP 129/89
[2017-04-09] MEDS ORDERED: DILTIAZEM HCL 60MG TABLET PO SCH ×2 (14:00)
[2017-04-09 15:54] VITALS: BP 129/95
[2017-04-09] MEDS: QUETIAPINE FUMARATE 100MG TABLET PO SCH (16:52)
[2017-04-09 20:00] VITALS: BP 121/90
[2017-04-09] MEDS: ATORVASTATIN CALCIUM 20MG TABLET PO SCH (21:00)
[2017-04-10 00:25] VITALS: BP 123/87
[2017-04-10] MEDS: DILTIAZEM HCL 60MG TABLET PO SCH ×4 (01:02→21:26)
[2017-04-10] MEDS: MORPHINE SULFATE 4 MG/ML CPJ (NOT FOR IM USE) IV PRN ×5 (01:02→19:44)
[2017-04-10 04:00] VITALS: BP 137/97
[2017-04-10] MEDS: SILDENAFIL CITRATE 20MG TABLET PO SCH ×3 (05:36→21:25)
[2017-04-10] MEDS: CLONIDINE 0.1MG TABLET PO SCH ×3 (05:36→21:25)
[2017-04-10 06:49] LABS: BASOPHILS % 1.5 % (0.0-2.0); EOSINOPHILS % 2.3 % (0.0-5.0); HEMATOCRIT. 29.1 % (42.0-52.0); HEMOGLOBIN. 9.7 g/dL (14.0-18.0); LYMPHOCYTES % 14.9 % (20.0-50.0); MEAN CORPUSCULAR HEMOGLOBIN 25.3 pg (28.0-32.0); MEAN CORPUSCULAR VOLUME 75.8 fL (80.0-94.0); MEAN PLATELET VOLUME 8.7 fl (7.4-10.4); MONOCYTES % 10.6 % (2.0-8.0); NEUTROPHILS % 70.7 % (40.0-76.0); PLATELET 152 x1000/uL (130-400); RED BLOOD CELL COUNT 3.84 mill/uL (4.7-6.1); RED CELL DISTRIBUTION WIDTH 17.9 % (11.6-14.6)
[2017-04-10 08:00] VITALS: BP 146/71
[2017-04-10] MEDS ORDERED: DILTIAZEM HCL 60MG TABLET PO SCH (08:00)
[2017-04-10 12:00] VITALS: BP 150/104
[2017-04-10] MEDS ORDERED: METO25TA6 PO (16:07)
[2017-04-10] MEDS ORDERED: ACET1TAB12 PO (16:07)
[2017-04-10] MEDS ORDERED: CLON0.1T PO (16:07)
[2017-04-10] MEDS ORDERED: ATOR20TA65 PO (16:07)
[2017-04-10] MEDS ORDERED: DILT180C69 PO (16:07)
[2017-04-10] MEDS: QUETIAPINE FUMARATE 100MG TABLET PO SCH (16:56)
[2017-04-10 20:00] VITALS: BP 129/90
[2017-04-10] MEDS: METOPROLOL TARTRATE 25MG TABLET PO SCH (21:24)
[2017-04-10] MEDS: ATORVASTATIN CALCIUM 20MG TABLET PO SCH (21:26)
[2017-04-11] VITALS (7 sets, daily range): BP systolic 130–149; BP diastolic 80–105
[2017-04-11] MEDS: MORPHINE SULFATE 4 MG/ML CPJ (NOT FOR IM USE) IV PRN ×5 (00:26→17:26)
[2017-04-11] MEDS: CLONIDINE 0.1MG TABLET PO SCH ×2 (06:19→13:04)
[2017-04-11] MEDS: SILDENAFIL CITRATE 20MG TABLET PO SCH ×2 (06:19→13:08)
[2017-04-11] MEDS: DILTIAZEM HCL 60MG TABLET PO SCH ×2 (06:20→13:08)
[2017-04-11 07:01] LABS: BASOPHILS % 1.1 % (0.0-2.0); EOSINOPHILS % 2.4 % (0.0-5.0); HEMATOCRIT. 28.3 % (42.0-52.0); HEMOGLOBIN. 9.3 g/dL (14.0-18.0); LYMPHOCYTES % 14.8 % (20.0-50.0); MEAN CORPUSCULAR HEMOGLOBIN 25.1 pg (28.0-32.0); MEAN CORPUSCULAR VOLUME 76.1 fL (80.0-94.0); MONOCYTES % 12.3 % (2.0-8.0); NEUTROPHILS % 69.4 % (40.0-76.0); PLATELET 141 x1000/uL (130-400); RED BLOOD CELL COUNT 3.72 mill/uL (4.7-6.1); RED CELL DISTRIBUTION WIDTH 18.1 % (11.6-14.6)
[2017-04-11] MEDS: METOPROLOL TARTRATE 25MG TABLET PO SCH (08:36)
[2017-04-11] MEDS ORDERED: VIAG50 PO (17:02)
[2017-04-11] MEDS: QUETIAPINE FUMARATE 100MG TABLET PO SCH (17:26)
== END 2017-04-11 17:55 | disposition home or self-care (01) | DRG 720 ==
LOC: ER 09:56 → 6WST 11:14 → ENRESERV 11:50
PROVIDERS: ADMIT Internal Medicine; ATTEND Internal Medicine
PROC: 5A1D60Z (ICD-10-PCS; 2017-03-24)
PROC: 30233N1 Transfusion of Nonautologous Red Blood Cells into Peripheral Vein, Percutaneous Approach (ICD-10-PCS; 2017-03-26)
PROC: 0W993ZZ Drainage of Right Pleural Cavity, Percutaneous Approach (ICD-10-PCS; principal; 2017-03-28)
PROC: 0W993ZZ Drainage of Right Pleural Cavity, Percutaneous Approach (ICD-10-PCS; 2017-03-31)
PROC: 0W9930Z Drainage of Right Pleural Cavity with Drainage Device, Percutaneous Approach (ICD-10-PCS; 2017-04-02)
DX: A41.9 Sepsis, unspecified organism (principal); J96.00 Acute respiratory failure, unspecified whether with hypoxia or hypercapnia; I13.2 Hypertensive heart and chronic kidney disease with heart failure and with stage 5 chronic kidney disease, or end stage renal disease; G93.40 Encephalopathy, unspecified; I47.2 Ventricular tachycardia; J94.2 Hemothorax; J90 Pleural effusion, not elsewhere classified; N18.6 End stage renal disease; J84.9 Interstitial pulmonary disease, unspecified; R18.8 Other ascites; I42.0 Dilated cardiomyopathy; E87.1 Hypo-osmolality and hyponatremia; I48.2 Chronic atrial fibrillation; E87.5 Hyperkalemia; I50.30 Unspecified diastolic (congestive) heart failure; D63.1 Anemia in chronic kidney disease; J98.11 Atelectasis; E03.9 Hypothyroidism, unspecified; E11.22 Type 2 diabetes mellitus with diabetic chronic kidney disease; F20.9 Schizophrenia, unspecified; I95.9 Hypotension, unspecified; R16.1 Splenomegaly, not elsewhere classified; R54 Age-related physical debility; B96.1 Klebsiella pneumoniae [K. pneumoniae] as the cause of diseases classified elsewhere; F31.9 Bipolar disorder, unspecified; I25.10 Atherosclerotic heart disease of native coronary artery without angina pectoris; I27.2 Other secondary pulmonary hypertension; I49.3 Ventricular premature depolarization; Z79.82 Long term (current) use of aspirin; Z79.899 Other long term (current) drug therapy; Z99.2 Dependence on renal dialysis; Z91.19 Patient's noncompliance with other medical treatment and regimen; Z88.8 Allergy status to other drugs, medicaments and biological substances; Z79.2 Long term (current) use of antibiotics
CPT/HCPCS: 32555; 36415; 71010; 71250; 80048; 80053; 80061; 80162; 82550; 82945; 82962; 83615; 83735; 84132; 84157; 84439; 84443; 84481; 84484; 85025; 85610; 86850; 86900; 86920; 87040; 87070; 87205; 88108; 88312; 89050; 93005; 93306; 93970; 94640; 94664; 96365; 96375; 97116; 97162; 99291; C1729; C1893; J0610; J0696; J1200; J1815; J2060; J2270; J3490; J7030; J7040; J7050; J7060; J7611; J7620; P9016

== ENCOUNTER 2017-06-02 09:08 | Inpatient (IN) | payer OTHER ==
[~2017-06-02] VITALS: Ht 180.3 cm; Wt 117.9 kg
[~2017-06-02 09:08] MED LIST changes: +ACET1TAB12 PO; -AMLO10TA80; -ASPI-1158; -ATOR10TA69; +ATOR20TA65 PO; +CLON0.1T PO; -CLON0.2T; +DILT180C69 PO; -DILT360C27 PO; -HYDR100T31; +METO25TA6 PO; -MINO2.5T19; +VIAG50 PO
[2017-06-02] MEDS ORDERED: ONDANSETRON HCL 4MG/2ML VIAL IV STA (09:31)
[2017-06-02] MEDS ORDERED: MORPHINE SULFATE 4 MG/ML CPJ (NOT FOR IM USE) IV STA (09:31)
[2017-06-02] MEDS ORDERED: IPRATROPIUM/ALBUTEROL 0.5-3(2.5)MG/3ML NEB HHN ONE (09:45)
[2017-06-02 09:58] LABS: BASOPHILS % 1.2 % (0.0-2.0); HEMATOCRIT. 25.7 % (42.0-52.0); HEMOGLOBIN. 8.5 g/dL (14.0-18.0); LYMPHOCYTES % 9.6 % (20.0-50.0); MEAN CORPUSCULAR HEMOGLOBIN 24.4 pg (28.0-32.0); MEAN CORPUSCULAR VOLUME 74.3 fL (80.0-94.0); MONOCYTES % 8.1 % (2.0-8.0); NEUTROPHILS % 79.1 % (40.0-76.0); PLATELET 241 x1000/uL (130-400); RED BLOOD CELL COUNT 3.47 mill/uL (4.7-6.1); RED CELL DISTRIBUTION WIDTH 19.2 % (11.6-14.6)
[2017-06-02 10:02] LABS: INR 1.2; PROTHROMBIN TIME 12.7 sec (9.4-11.6)
[2017-06-02 10:09] LABS: CARBON DIOXIDE 27 mEq/L (21-32); CHLORIDE 98 mEq/L (98-107); TROPONIN I 0.08 ng/mL (0.00-0.04)
[2017-06-02] MEDS ORDERED: DEXTROSE 50% WATER 50ML SYRINGE IV PRN (10:45)
[2017-06-02] MEDS ORDERED: DOCUSATE SODIUM 100MG CAPSULE PO PRN (10:45)
[2017-06-02] MEDS ORDERED: ONDANSETRON HCL 4MG/2ML VIAL IV PRN (10:45)
[2017-06-02] MEDS ORDERED: CEFTRIAXONE 1 G PREMIX 50 ML IV SCH (10:45)
[2017-06-02] MEDS ORDERED: CLONIDINE 0.1MG TABLET PO PRN ×2 (10:45)
[2017-06-02] MEDS ORDERED: ACETAMINOPHEN 325MG TABLET PO PRN (10:45)
[2017-06-02] MEDS ORDERED: LORAZEPAM 2MG/ML CPJ IV PRN (10:45)
[2017-06-02] MEDS ORDERED: BLOOD SUGAR DIAGNOSTIC STRIP TEST SCH (12:30)
[2017-06-02] MEDS ORDERED: INSULIN LISPRO 100 UNITS/ML SUBCUT SCH (12:40)
[2017-06-02 12:50] VITALS: BP 127/73
[2017-06-02] MEDS: DILTIAZEM HCL 60MG TABLET PO SCH ×2 (14:00→20:59)
[2017-06-02 17:35] VITALS: BP 129/73
[2017-06-02 17:36] LABS: CREATINE KINASE 62 IU/L (39-308)
[2017-06-02] MEDS: ACETAMINOPHEN WITH CODEINE 300/30MG TABLET PO PRN ×2 (17:40→20:58)
[2017-06-02] MEDS: CEFTRIAXONE 1 G PREMIX 50 ML IV SCH (17:40)
[2017-06-02 20:11] VITALS: BP 128/77
[2017-06-02] MEDS: ATORVASTATIN CALCIUM 20MG TABLET PO SCH (20:57)
[2017-06-02] MEDS: METOPROLOL TARTRATE 25MG TABLET PO SCH (20:58)
[2017-06-02] MEDS: QUETIAPINE FUMARATE 100MG TABLET PO SCH (20:58)
[2017-06-02 23:34] VITALS: BP 106/50
[2017-06-03] VITALS (7 sets, daily range): BP systolic 111–144; BP diastolic 67–89
[2017-06-03 01:10] LABS: CREATINE KINASE 51 IU/L (39-308)
[2017-06-03] MEDS: DILTIAZEM HCL 60MG TABLET PO SCH (06:18)
[2017-06-03] MEDS: MORPHINE SULFATE 4 MG/ML CPJ (NOT FOR IM USE) IV PRN ×4 (06:18→20:39)
[2017-06-03 07:21] LABS: INR 1.2; PARTIAL THROMBOPLASTIN TIME 30.8 sec (23.4-31.0)
[2017-06-03 08:26] LABS: CARBON DIOXIDE 27 mEq/L (21-32); CHLORIDE 102 mEq/L (98-107); HDL CHOLESTEROL 47 mg/dL (40-59); LDL CHOLESTEROL 46 mg/dL (5-100)
[2017-06-03 09:07] LABS: BASOPHILS % 2.1 % (0.0-2.0); EOSINOPHILS % 3.8 % (0.0-5.0); LYMPHOCYTES % 12.8 % (20.0-50.0); MEAN CORPUSCULAR HEMOGLOBIN 24.2 pg (28.0-32.0); MEAN CORPUSCULAR VOLUME 74.8 fL (80.0-94.0); MEAN PLATELET VOLUME 8.4 fl (7.4-10.4); MONOCYTES % 12.3 % (2.0-8.0); PLATELET 178 x1000/uL (130-400); RED BLOOD CELL COUNT 2.79 mill/uL (4.7-6.1); RED CELL DISTRIBUTION WIDTH 19.2 % (11.6-14.6)
[2017-06-03 09:37] LABS: HEMATOCRIT. 20.9 % (42.0-52.0); HEMOGLOBIN. 6.8 g/dL (14.0-18.0)
[2017-06-03] MEDS: CEFTRIAXONE 1 G PREMIX 50 ML IV SCH (09:46)
[2017-06-03] MEDS: METOPROLOL TARTRATE 25MG TABLET PO SCH (09:48)
[2017-06-03] MEDS: FUROSEMIDE 40MG/4ML VIAL IV SCH (09:49)
[2017-06-03 10:20] LABS: BG BASE EXCESS 1.3 mmol/L (-2.0-2.0); BG CARBOXYHEMOGLOBIN 0.4 % (0.5-1.5); BG DEOXYHEMOGLOBIN 8.6 % (0.0-5.0); BG FRACTION INSPIRED OXYGEN 32; BG HCO3 ACT 26.6 mmol/L (22.0-26.0); BG METHEMOGLOBIN 0.6 % (0.0-1.5); BG OXYGEN SATURATION 91.3 % (92.0-98.5); BG OXYHEMOGLOBIN 90.4 % (94.0-97.0); BG PCO2 46.1 mmHg (35.0-45.0); BG PH 7.379 (7.350-7.450); BG PO2 67.9 mmHg (75.0-100.0); BG SAMPLE SITE LEFT RADIAL; BG TOTAL HEMOGLOBIN 6.9 g/dL (12.0-18.0); BG VENT MODE NASAL CANNULA
[2017-06-03 12:54] LABS: TOTAL IRON BINDING CAPACITY 170 ug/dL (250-450)
[2017-06-03] MEDS ORDERED: SODIUM POLYSTYRENE SULFONATE 15 G/60 ML BOT PO NR (13:15)
[2017-06-03] MEDS: SILDENAFIL CITRATE 20MG TABLET PO SCH ×2 (14:03→21:21)
[2017-06-03 16:58] LABS: TROPONIN I 0.06 ng/mL (0.00-0.04)
[2017-06-03] MEDS ORDERED: ENOXAPARIN 120MG/0.8ML SYR SUBCUT SCH (20:00)
[2017-06-03] MEDS: QUETIAPINE FUMARATE 100MG TABLET PO SCH (20:36)
[2017-06-03] MEDS: ATORVASTATIN CALCIUM 20MG TABLET PO SCH (20:36)
[2017-06-04] VITALS (13 sets, daily range): BP systolic 115–175; BP diastolic 79–105
[2017-06-04] MEDS: SILDENAFIL CITRATE 20MG TABLET PO SCH ×3 (05:52→22:32)
[2017-06-04] MEDS: MORPHINE SULFATE 4 MG/ML CPJ (NOT FOR IM USE) IV PRN ×4 (06:12→22:32)
[2017-06-04 08:19] LABS: BASOPHILS % 1.4 % (0.0-2.0); EOSINOPHILS % 3.3 % (0.0-5.0); HEMATOCRIT. 27.6 % (42.0-52.0); HEMOGLOBIN. 8.8 g/dL (14.0-18.0); LYMPHOCYTES % 12.8 % (20.0-50.0); MEAN CORPUSCULAR HEMOGLOBIN 24.6 pg (28.0-32.0); MEAN CORPUSCULAR VOLUME 77.6 fL (80.0-94.0); MONOCYTES % 10.5 % (2.0-8.0); RED BLOOD CELL COUNT 3.55 mill/uL (4.7-6.1); RED CELL DISTRIBUTION WIDTH 19.2 % (11.6-14.6)
[2017-06-04 08:45] LABS: MEAN PLATELET VOLUME 8.6 fl (7.4-10.4); PLATELET 174 x1000/uL (130-400)
[2017-06-04] MEDS: CEFTRIAXONE 1 G PREMIX 50 ML IV SCH (09:33)
[2017-06-04] MEDS: FUROSEMIDE 40MG/4ML VIAL IV SCH (09:33)
[2017-06-04] MEDS ORDERED: SODIUM BICARBONATE 8.4% 1 MEQ/ML 50ML SYR IV NR (10:08)
[2017-06-04] MEDS ORDERED: INSULIN REGULAR (HUMULIN R) UD 100 UNITS/ML SYR IV NR (10:08)
[2017-06-04] MEDS ORDERED: DEXTROSE 50% WATER 50ML SYRINGE IV NR (10:13)
[2017-06-04] MEDS ORDERED: VERAPAMIL HCL 2.5 MG/1 ML 2ML VIAL IV SCH (10:30)
[2017-06-04] MEDS ORDERED: DILTIAZEM HCL 60MG TABLET PO SCH (12:00)
[2017-06-04] MEDS: ACETAMINOPHEN WITH CODEINE 300/30MG TABLET PO PRN ×2 (12:44→20:10)
[2017-06-04] MEDS ORDERED: VERAPAMIL HCL 2.5 MG/1 ML 2ML VIAL IV NR (14:07)
[2017-06-04] MEDS ORDERED: HEPARIN SODIUM 1,000 UNIT/1ML VIAL IV ONE (14:45)
[2017-06-04 16:24] LABS: CLARITY URINE CLEAR (CLEAR); COLOR URINE YELLOW (YELLOW); GLUCOSE URINE TRACE (NEGATIVE); KETONES URINE NEGATIVE (NEGATIVE); LEUKOCYTE ESTERASE URINE NEGATIVE (NEGATIVE); NITRITE URINE NEGATIVE (NEGATIVE); OCCULT BLOOD URINE NEGATIVE (NEGATIVE); PH URINE >=9.0 (4.5-8.0); PROTEIN URINE NEGATIVE (NEGATIVE); SPECIFIC GRAVITY URINE 1.007 (1.005-1.030); UROBILINOGEN URINE 0.2 E.U./dL (0.2-1.0)
[2017-06-04 16:38] LABS: *AMPHETAMINES SCREEN URINE NEGATIVE (NEGATIVE); *BARBITURATES SCREEN URINE NEGATIVE (NEGATIVE); *BENZODIAZEPINES SCREEN URINE NEGATIVE (NEGATIVE); *COCAINE SCREEN URINE NEGATIVE (NEGATIVE); CANNABINOID URINE SCREEN NEGATIVE (NEGATIVE); METHADONE URINE SCREEN NEGATIVE (NEGATIVE); OPIATES URINE SCREEN NEGATIVE (NEGATIVE); PHENCYCLIDINE URINE SCREEN NEGATIVE (NEGATIVE)
[2017-06-04] MEDS: DILTIAZEM HCL 90MG TABLET PO SCH (17:51)
[2017-06-04] MEDS: QUETIAPINE FUMARATE 100MG TABLET PO SCH (20:09)
[2017-06-04] MEDS: ATORVASTATIN CALCIUM 20MG TABLET PO SCH (20:09)
[2017-06-04] MEDS: HYDRALAZINE 20MG/ML VIAL IV PRN (20:55)
[2017-06-05] VITALS: BP_SYST 177; BP_SYST 186; BP_DIAS 88; BP_DIAS 94
[2017-06-05] MEDS: DILTIAZEM HCL 90MG TABLET PO SCH ×5 (00:47→23:30)
[2017-06-05] MEDS: HYDRALAZINE 20MG/ML VIAL IV PRN (04:40)
[2017-06-05] MEDS: MORPHINE SULFATE 4 MG/ML CPJ (NOT FOR IM USE) IV PRN ×4 (05:36→23:33)
[2017-06-05] MEDS: SILDENAFIL CITRATE 20MG TABLET PO SCH ×3 (05:37→22:54)
[2017-06-05 05:47] LABS: BASOPHILS % 1.4 % (0.0-2.0); EOSINOPHILS % 1.9 % (0.0-5.0); HEMOGLOBIN. 9.1 g/dL (14.0-18.0); LYMPHOCYTES % 7.8 % (20.0-50.0); MEAN CORPUSCULAR HEMOGLOBIN 24.5 pg (28.0-32.0); MEAN CORPUSCULAR VOLUME 75.3 fL (80.0-94.0); MONOCYTES % 10.9 % (2.0-8.0); PLATELET 188 x1000/uL (130-400); RED BLOOD CELL COUNT 3.72 mill/uL (4.7-6.1); RED CELL DISTRIBUTION WIDTH 19.1 % (11.6-14.6)
[2017-06-05 08:00] VITALS: BP 159/97
[2017-06-05] MEDS: FUROSEMIDE 40MG/4ML VIAL IV SCH (09:02)
[2017-06-05] MEDS: CEFTRIAXONE 1 G PREMIX 50 ML IV SCH (09:02)
[2017-06-05] MEDS: ACETAMINOPHEN WITH CODEINE 300/30MG TABLET PO PRN ×2 (09:30→20:52)
[2017-06-05] MEDS: METOPROLOL TARTRATE 25MG TABLET PO SCH ×2 (10:23→20:51)
[2017-06-05 12:00] VITALS: BP 175/108
[2017-06-05] MEDS ORDERED: DIPHENHYDRAMINE 50MG/ML VIAL IV PRN (15:30)
[2017-06-05 20:00] VITALS: BP 158/95
[2017-06-05] MEDS: ATORVASTATIN CALCIUM 20MG TABLET PO SCH (20:50)
[2017-06-05] MEDS: QUETIAPINE FUMARATE 100MG TABLET PO SCH (20:51)
[2017-06-05] MEDS ORDERED: METOPROLOL TARTRATE 25MG TABLET PO SCH (21:00)
[2017-06-06] VITALS (7 sets, daily range): BP systolic 128–153; BP diastolic 82–101
[2017-06-06] MEDS: SILDENAFIL CITRATE 20MG TABLET PO SCH ×3 (05:49→21:05)
[2017-06-06] MEDS: DILTIAZEM HCL 90MG TABLET PO SCH ×4 (05:49→23:23)
[2017-06-06] MEDS: MORPHINE SULFATE 4 MG/ML CPJ (NOT FOR IM USE) IV PRN ×3 (05:50→21:06)
[2017-06-06] MEDS: FUROSEMIDE 40MG/4ML VIAL IV SCH (08:47)
[2017-06-06] MEDS: CEFTRIAXONE 1 G PREMIX 50 ML IV SCH (08:47)
[2017-06-06] MEDS ORDERED: METOPROLOL TARTRATE 50MG TABLET PO SCH (09:00)
[2017-06-06 09:20] LABS: HEMOGLOBIN 9.1 g/dL (14.0-18.0)
[2017-06-06 09:21] LABS: BASOPHILS % 1.5 % (0.0-2.0); EOSINOPHILS % 3.6 % (0.0-5.0); HEMATOCRIT. 27.4 % (42.0-52.0); HEMOGLOBIN. 8.9 g/dL (14.0-18.0); LYMPHOCYTES % 13.7 % (20.0-50.0); MEAN CORPUSCULAR HEMOGLOBIN 24.4 pg (28.0-32.0); MEAN CORPUSCULAR VOLUME 75.3 fL (80.0-94.0); MEAN PLATELET VOLUME 8.4 fl (7.4-10.4); NEUTROPHILS % 71.2 % (40.0-76.0); PLATELET 178 x1000/uL (130-400); RED BLOOD CELL COUNT 3.63 mill/uL (4.7-6.1); RED CELL DISTRIBUTION WIDTH 18.6 % (11.6-14.6)
[2017-06-06] MEDS ORDERED: BENZOCAINE LEFT EAR PRN (11:15)
[2017-06-06] MEDS ORDERED: ANTIPYRINE LEFT EAR PRN (11:15)
[2017-06-06] MEDS ORDERED: GLYCERIN LEFT EAR PRN (11:15)
[2017-06-06] MEDS: NEOMYCIN-POLYMYXIN B-HYDROCORTISONE 1% OTIC SOLN 10ML LEFT EAR SCH ×3 (13:09→23:23)
[2017-06-06] MEDS: ACETAMINOPHEN WITH CODEINE 300/30MG TABLET PO PRN (17:08)
[2017-06-06] MEDS: METOPROLOL TARTRATE 50MG TABLET PO SCH ×2 (17:08→21:06)
[2017-06-06] MEDS: ATORVASTATIN CALCIUM 20MG TABLET PO SCH (21:05)
[2017-06-06] MEDS: QUETIAPINE FUMARATE 100MG TABLET PO SCH (21:06)
[2017-06-07 04:30] VITALS: BP 159/99
[2017-06-07] MEDS: SILDENAFIL CITRATE 20MG TABLET PO SCH ×3 (05:24→22:13)
[2017-06-07] MEDS: METOPROLOL TARTRATE 50MG TABLET PO SCH ×3 (05:25→22:14)
[2017-06-07] MEDS: DILTIAZEM HCL 90MG TABLET PO SCH ×3 (05:25→17:58)
[2017-06-07] MEDS: NEOMYCIN-POLYMYXIN B-HYDROCORTISONE 1% OTIC SOLN 10ML LEFT EAR SCH ×3 (05:25→17:58)
[2017-06-07 06:49] LABS: BASOPHILS % 1.6 % (0.0-2.0); EOSINOPHILS % 4.2 % (0.0-5.0); HEMATOCRIT. 26.8 % (42.0-52.0); HEMOGLOBIN. 8.8 g/dL (14.0-18.0); LYMPHOCYTES % 12.3 % (20.0-50.0); MEAN CORPUSCULAR HEMOGLOBIN 24.6 pg (28.0-32.0); MEAN CORPUSCULAR VOLUME 75.5 fL (80.0-94.0); MEAN PLATELET VOLUME 8.3 fl (7.4-10.4); MONOCYTES % 9.4 % (2.0-8.0); NEUTROPHILS % 72.5 % (40.0-76.0); PLATELET 162 x1000/uL (130-400); RED BLOOD CELL COUNT 3.55 mill/uL (4.7-6.1); RED CELL DISTRIBUTION WIDTH 18.7 % (11.6-14.6)
[2017-06-07] MEDS ORDERED: CLONIDINE 0.1MG TABLET PO SCH (07:30)
[2017-06-07] MEDS: CEFTRIAXONE 1 G PREMIX 50 ML IV SCH (08:51)
[2017-06-07] MEDS: FUROSEMIDE 40MG/4ML VIAL IV SCH (08:51)
[2017-06-07] MEDS: MORPHINE SULFATE 4 MG/ML CPJ (NOT FOR IM USE) IV PRN ×4 (08:51→22:01)
[2017-06-07 12:00] VITALS: BP 146/106
[2017-06-07] MEDS: CLONIDINE 0.1MG TABLET PO SCH ×2 (15:01→21:01)
[2017-06-07 15:48] VITALS: BP 154/108
[2017-06-07 20:00] VITALS: BP 159/102
[2017-06-07] MEDS ORDERED: HYDROCODONE/ACETAMINOPHEN 10/325MG TABLET PO PRN (20:00)
[2017-06-07] MEDS: QUETIAPINE FUMARATE 100MG TABLET PO SCH (21:01)
[2017-06-07] MEDS: ATORVASTATIN CALCIUM 20MG TABLET PO SCH (21:01)
[2017-06-08] VITALS (8 sets, daily range): BP systolic 14–147; BP diastolic 78–110
[2017-06-08] MEDS: DILTIAZEM HCL 90MG TABLET PO SCH ×4 (00:04→17:59)
[2017-06-08] MEDS: NEOMYCIN-POLYMYXIN B-HYDROCORTISONE 1% OTIC SOLN 10ML LEFT EAR SCH ×4 (00:07→17:59)
[2017-06-08] MEDS: MORPHINE SULFATE 4 MG/ML CPJ (NOT FOR IM USE) IV PRN ×5 (01:52→21:49)
[2017-06-08] MEDS: CLONIDINE 0.1MG TABLET PO SCH ×3 (06:16→21:47)
[2017-06-08] MEDS: METOPROLOL TARTRATE 50MG TABLET PO SCH ×3 (06:16→21:47)
[2017-06-08] MEDS: SILDENAFIL CITRATE 20MG TABLET PO SCH ×3 (06:16→21:45)
[2017-06-08 07:01] LABS: BASOPHILS % 1.4 % (0.0-2.0); EOSINOPHILS % 4.3 % (0.0-5.0); HEMATOCRIT. 26.2 % (42.0-52.0); HEMOGLOBIN. 8.5 g/dL (14.0-18.0); LYMPHOCYTES % 16.5 % (20.0-50.0); MEAN CORPUSCULAR HEMOGLOBIN 24.5 pg (28.0-32.0); MEAN CORPUSCULAR VOLUME 75.4 fL (80.0-94.0); MEAN PLATELET VOLUME 8.5 fl (7.4-10.4); NEUTROPHILS % 67.8 % (40.0-76.0); PLATELET 160 x1000/uL (130-400); RED BLOOD CELL COUNT 3.47 mill/uL (4.7-6.1); RED CELL DISTRIBUTION WIDTH 18.6 % (11.6-14.6)
[2017-06-08] MEDS: FUROSEMIDE 40MG/4ML VIAL IV SCH (08:41)
[2017-06-08] MEDS: CEFTRIAXONE 1 G PREMIX 50 ML IV SCH (08:41)
[2017-06-08] MEDS: ASPIRIN 325MG EC TABLET PO SCH (11:36)
[2017-06-08] MEDS: ATORVASTATIN CALCIUM 20MG TABLET PO SCH (21:45)
[2017-06-08] MEDS: QUETIAPINE FUMARATE 100MG TABLET PO SCH (21:47)
[2017-06-09] VITALS: BP 125/81
[2017-06-09] MEDS: NEOMYCIN-POLYMYXIN B-HYDROCORTISONE 1% OTIC SOLN 10ML LEFT EAR SCH ×4 (00:04→17:44)
[2017-06-09] MEDS: DILTIAZEM HCL 90MG TABLET PO SCH ×4 (00:05→17:44)
[2017-06-09] MEDS: MORPHINE SULFATE 4 MG/ML CPJ (NOT FOR IM USE) IV PRN ×3 (02:51→17:44)
[2017-06-09 04:00] VITALS: BP 125/69
[2017-06-09] MEDS: METOPROLOL TARTRATE 50MG TABLET PO SCH ×3 (05:22→21:08)
[2017-06-09] MEDS: CLONIDINE 0.1MG TABLET PO SCH ×3 (05:22→21:08)
[2017-06-09] MEDS: SILDENAFIL CITRATE 20MG TABLET PO SCH ×3 (05:23→21:09)
[2017-06-09 06:41] LABS: BASOPHILS % 1.6 % (0.0-2.0); EOSINOPHILS % 4.5 % (0.0-5.0); HEMATOCRIT. 24.1 % (42.0-52.0); LYMPHOCYTES % 17.4 % (20.0-50.0); MEAN CORPUSCULAR HEMOGLOBIN 24.8 pg (28.0-32.0); MEAN PLATELET VOLUME 8.7 fl (7.4-10.4); MONOCYTES % 10.1 % (2.0-8.0); NEUTROPHILS % 66.4 % (40.0-76.0); PLATELET 152 x1000/uL (130-400); RED BLOOD CELL COUNT 3.22 mill/uL (4.7-6.1); RED CELL DISTRIBUTION WIDTH 18.4 % (11.6-14.6)
[2017-06-09 08:00] VITALS: BP 137/81
[2017-06-09 08:09] LABS: CARBON DIOXIDE 25 mEq/L (21-32); CHLORIDE 102 mEq/L (98-107)
[2017-06-09] MEDS: FUROSEMIDE 40MG/4ML VIAL IV SCH (09:19)
[2017-06-09] MEDS: ASPIRIN 325MG EC TABLET PO SCH (09:19)
[2017-06-09] MEDS: CEFTRIAXONE 1 G PREMIX 50 ML IV SCH (09:19)
[2017-06-09 12:00] VITALS: BP 144/100
[2017-06-09 20:00] VITALS: BP 160/104
[2017-06-09] MEDS: ATORVASTATIN CALCIUM 20MG TABLET PO SCH (21:07)
[2017-06-09] MEDS: QUETIAPINE FUMARATE 100MG TABLET PO SCH (21:08)
[2017-06-10] VITALS (7 sets, daily range): BP systolic 138–178; BP diastolic 79–112
[2017-06-10] MEDS: NEOMYCIN-POLYMYXIN B-HYDROCORTISONE 1% OTIC SOLN 10ML LEFT EAR SCH ×3 (00:15→13:09)
[2017-06-10] MEDS: DILTIAZEM HCL 90MG TABLET PO SCH ×3 (00:16→12:00)
[2017-06-10] MEDS: SILDENAFIL CITRATE 20MG TABLET PO SCH ×3 (05:17→21:34)
[2017-06-10] MEDS: METOPROLOL TARTRATE 50MG TABLET PO SCH ×3 (05:18→21:34)
[2017-06-10] MEDS: CLONIDINE 0.1MG TABLET PO SCH ×3 (05:19→21:35)
[2017-06-10] MEDS: MORPHINE SULFATE 4 MG/ML CPJ (NOT FOR IM USE) IV PRN ×2 (05:31→13:10)
[2017-06-10 06:59] LABS: BASOPHILS % 1.6 % (0.0-2.0); EOSINOPHILS % 3.8 % (0.0-5.0); HEMATOCRIT. 25.3 % (42.0-52.0); HEMOGLOBIN. 8.4 g/dL (14.0-18.0); LYMPHOCYTES % 17.1 % (20.0-50.0); MEAN CORPUSCULAR HEMOGLOBIN 24.9 pg (28.0-32.0); MEAN CORPUSCULAR VOLUME 74.7 fL (80.0-94.0); MEAN PLATELET VOLUME 8.7 fl (7.4-10.4); MONOCYTES % 9.2 % (2.0-8.0); NEUTROPHILS % 68.3 % (40.0-76.0); PLATELET 156 x1000/uL (130-400); RED BLOOD CELL COUNT 3.39 mill/uL (4.7-6.1); RED CELL DISTRIBUTION WIDTH 18.7 % (11.6-14.6)
[2017-06-10] MEDS: FUROSEMIDE 40MG/4ML VIAL IV SCH (08:52)
[2017-06-10] MEDS: ASPIRIN 325MG EC TABLET PO SCH (08:52)
[2017-06-10] MEDS ORDERED: ASPI-867 PO ×2 (11:08→11:15)
[2017-06-10] MEDS ORDERED: METO50TA5 PO ×2 (11:08→11:15)
[2017-06-10] MEDS ORDERED: DILT90TA2 PO ×2 (11:08→11:15)
[2017-06-10] MEDS ORDERED: QUET100T PO ×2 (11:08→11:15)
[2017-06-10] MEDS ORDERED: REV20 PO ×2 (11:08→11:15)
[2017-06-10] MEDS ORDERED: ATOR20TA PO ×2 (11:08→11:15)
[2017-06-10] MEDS ORDERED: FURO-151 PO (11:15)
[2017-06-10] MEDS: ATORVASTATIN CALCIUM 20MG TABLET PO SCH (20:53)
[2017-06-10] MEDS: QUETIAPINE FUMARATE 100MG TABLET PO SCH (20:53)
[2017-06-11] VITALS: BP 139/101
[2017-06-11 04:00] VITALS: BP 166/118
[2017-06-11] MEDS: SILDENAFIL CITRATE 20MG TABLET PO SCH ×2 (05:14→13:57)
[2017-06-11] MEDS: CLONIDINE 0.1MG TABLET PO SCH ×2 (05:14→13:57)
[2017-06-11] MEDS: DILTIAZEM HCL 90MG TABLET PO SCH ×3 (05:15→12:47)
[2017-06-11] MEDS: METOPROLOL TARTRATE 50MG TABLET PO SCH ×2 (05:15→13:57)
[2017-06-11] MEDS: NEOMYCIN-POLYMYXIN B-HYDROCORTISONE 1% OTIC SOLN 10ML LEFT EAR SCH (05:19)
[2017-06-11 06:27] LABS: EOSINOPHILS % 2.9 % (0.0-5.0); HEMATOCRIT. 25.5 % (42.0-52.0); HEMOGLOBIN. 8.3 g/dL (14.0-18.0); LYMPHOCYTES % 16.3 % (20.0-50.0); MEAN CORPUSCULAR HEMOGLOBIN 24.3 pg (28.0-32.0); MEAN CORPUSCULAR VOLUME 74.8 fL (80.0-94.0); MEAN PLATELET VOLUME 8.6 fl (7.4-10.4); MONOCYTES % 7.8 % (2.0-8.0); PLATELET 171 x1000/uL (130-400); RED CELL DISTRIBUTION WIDTH 18.3 % (11.6-14.6)
[2017-06-11 08:00] VITALS: BP 133/91
[2017-06-11] MEDS: FUROSEMIDE 40MG/4ML VIAL IV SCH (08:32)
[2017-06-11] MEDS: ASPIRIN 325MG EC TABLET PO SCH (08:35)
== END 2017-06-11 14:50 | disposition home or self-care (01) | DRG 720 ==
LOC: ER 09:17 → 8WST 10:32 → EDBEDREQ 10:34 → EDBEDREQTM 10:34 → ENRESERV 11:10 → 8WST 06-10 19:45
PROVIDERS: ADMIT Internal Medicine; ATTEND Internal Medicine
PROC: 30233N1 Transfusion of Nonautologous Red Blood Cells into Peripheral Vein, Percutaneous Approach (ICD-10-PCS; principal; 2017-06-02)
DX: A41.9 Sepsis, unspecified organism (principal); I13.2 Hypertensive heart and chronic kidney disease with heart failure and with stage 5 chronic kidney disease, or end stage renal disease; I47.2 Ventricular tachycardia; J96.92 Respiratory failure, unspecified with hypercapnia; J96.91 Respiratory failure, unspecified with hypoxia; J84.9 Interstitial pulmonary disease, unspecified; J90 Pleural effusion, not elsewhere classified; N18.6 End stage renal disease; E46 Unspecified protein-calorie malnutrition; I47.1 Supraventricular tachycardia; E11.22 Type 2 diabetes mellitus with diabetic chronic kidney disease; I48.1 Persistent atrial fibrillation; I48.4 Atypical atrial flutter; I48.91 Unspecified atrial fibrillation; I48.2 Chronic atrial fibrillation; I42.0 Dilated cardiomyopathy; I82.C11 Acute embolism and thrombosis of right internal jugular vein; E87.5 Hyperkalemia; D50.9 Iron deficiency anemia, unspecified; E03.9 Hypothyroidism, unspecified; F17.210 Nicotine dependence, cigarettes, uncomplicated; I50.30 Unspecified diastolic (congestive) heart failure; F20.9 Schizophrenia, unspecified; E78.00 Pure hypercholesterolemia, unspecified; E78.5 Hyperlipidemia, unspecified; F12.90 Cannabis use, unspecified, uncomplicated; G40.909 Epilepsy, unspecified, not intractable, without status epilepticus; D63.1 Anemia in chronic kidney disease; I25.10 Atherosclerotic heart disease of native coronary artery without angina pectoris; J98.19 Other pulmonary collapse; F31.9 Bipolar disorder, unspecified; Z68.36 Body mass index [BMI] 36.0-36.9, adult; Z79.01 Long term (current) use of anticoagulants; Z99.2 Dependence on renal dialysis; Z79.899 Other long term (current) drug therapy; Z91.19 Patient's noncompliance with other medical treatment and regimen; Z88.8 Allergy status to other drugs, medicaments and biological substances; Z79.1 Long term (current) use of non-steroidal anti-inflammatories (NSAID)
CPT/HCPCS: 36415; 36600; 71010; 71250; 80048; 80051; 80053; 80061; 80305; 81001; 82270; 82375; 82550; 82805; 83540; 83550; 83735; 84132; 84443; 84484; 85014; 85018; 85025; 85610; 85730; 86850; 86900; 86920; 87040; 93005; 93306; 93970; 93971; 94620; 94640; 96374; 96375; 99285; J0360; J0696; J1200; J1650; J1815; J1940; J2060; J2270; J2405; J3490; J7030; J7050; J7620; P9016

== ENCOUNTER 2020-01-25 12:29 | Emergency (ER) | payer OTHER ==
[~2020-01-25] VITALS: Ht 180.3 cm; Wt 81.0 kg
[~2020-01-25 12:29] MED LIST changes: -ACET1TAB12 PO; +ATOR10TA PO; -ATOR20TA65 PO; +CARDIZEM PO; -CLON0.1T PO; +CLON0.2T PO; -DILT180C69 PO; +FERR325T6 PO; +METO-539 PO; -METO25TA6 PO; +REV20 PO; -VIAG50 PO
[2020-01-25 15:33] LABS: CHLORIDE 95 mEq/L (98-107)
[2020-01-25 15:36] LABS: BASOPHILS % 1.1 % (0.0-2.0); EOSINOPHILS % 0.5 % (0.0-5.0); HEMATOCRIT. 38.8 % (42.0-52.0); HEMOGLOBIN. 12.8 g/dL (14.0-18.0); LYMPHOCYTES % 14.8 % (20.0-50.0); MEAN CORPUSCULAR HEMOGLOBIN 24.8 pg (28.0-32.0); MEAN CORPUSCULAR VOLUME 75.4 fL (80.0-94.0); MEAN PLATELET VOLUME 8.8 fl (7.4-10.4); MONOCYTES % 6.1 % (2.0-8.0); NEUTROPHILS % 77.5 % (40.0-76.0); PLATELET 197 x1000/uL (130-400); RED BLOOD CELL COUNT 5.14 mill/uL (4.7-6.1); RED CELL DISTRIBUTION WIDTH 21.4 % (11.6-14.6)
[2020-01-25] MEDS ORDERED: SODIUM BICARBONATE 8.4% 1 MEQ/ML 50ML SYR IV ONE (16:30)
[2020-01-25] MEDS ORDERED: INSULIN REGULAR (HUMULIN R) 300UNITS/3ML IV ONE (16:30)
[2020-01-25] MEDS ORDERED: DEXTROSE 50% WATER 50ML SYRINGE IV ONE (16:30)
[2020-01-25] MEDS ORDERED: ALBUTEROL (0.083%) 2.5MG/3ML NEB HHN ONE (16:30)
[2020-01-25] MEDS ORDERED: SODIUM POLYSTYRENE SULFONATE 15 G/60 ML BOT PO ONE (16:30)
[2020-01-25] MEDS ORDERED: MORPHINE SULFATE 4 MG/ML CPJ (NOT FOR IM USE) IV STA (18:04)
[2020-01-25] MEDS ORDERED: ONDANSETRON HCL 4MG/2ML INJ IV STA (18:04)
[2020-01-25] MEDS ORDERED: MORPHINE SULFATE 4 MG/ML CPJ (NOT FOR IM USE) IV ONE (18:15)
[2020-01-25 19:00] VITALS: BP 173/116
[2020-01-25] MEDS ORDERED: CLONIDINE 0.2MG TABLET PO ONE (19:00)
== END 2020-01-25 20:21 | disposition short-term general hospital (02) ==
LOC: ER 12:29 → UNDOADMIN 18:01 → MICUSO 18:01 → ER 20:21
DX: R63.4 Abnormal weight loss (principal); I13.2 Hypertensive heart and chronic kidney disease with heart failure and with stage 5 chronic kidney disease, or end stage renal disease; N18.6 End stage renal disease; I50.9 Heart failure, unspecified; E87.5 Hyperkalemia; Z68.24 Body mass index [BMI] 24.0-24.9, adult; Z99.2 Dependence on renal dialysis; Z88.8 Allergy status to other drugs, medicaments and biological substances; Z79.899 Other long term (current) drug therapy; Z98.890 Other specified postprocedural states
CPT/HCPCS: 36415; 71045; 80053; 83880; 84484; 85025; 93005; 94640; 96374; 96375; 99285; J1815; J2270; J2405; J3490; Z7610

== ENCOUNTER 2020-02-06 20:39 | Inpatient (IN) | payer MEDICAID, OTHER ==
[~2020-02-06] VITALS: Ht 180.3 cm; Wt 81.7 kg
[2020-02-06] MEDS ORDERED: CLONIDINE 0.2MG TABLET PO ONE (22:45)
[2020-02-06 23:11] LABS: BG BASE EXCESS -2.4 mmol/L (-2.0-2.0); BG CARBOXYHEMOGLOBIN 0.8 % (0.5-1.5); BG DEOXYHEMOGLOBIN 16.8 % (0.0-5.0); BG FRACTION INSPIRED OXYGEN 36; BG HCO3 ACT 21.2 mmol/L (22.0-26.0); BG METHEMOGLOBIN 0.3 % (0.0-1.5); BG OXYHEMOGLOBIN 82.1 % (94.0-97.0); BG PCO2 32.7 mmHg (35.0-45.0); BG PH 7.429 (7.350-7.450); BG PO2 50.8 mmHg (75.0-100.0); BG SAMPLE SITE RIGHT RADIAL; BG TOTAL HEMOGLOBIN 11.7 g/dL (12.0-18.0); BG VENT MODE NASAL CANNULA
[2020-02-06 23:46] LABS: BASOPHILS % 0.5 % (0.0-2.0); EOSINOPHILS % 0.3 % (0.0-5.0); HEMATOCRIT. 32.8 % (42.0-52.0); HEMOGLOBIN. 11.1 g/dL (14.0-18.0); LYMPHOCYTES % 11.4 % (20.0-50.0); MEAN CORPUSCULAR HEMOGLOBIN 25.4 pg (28.0-32.0); MEAN CORPUSCULAR VOLUME 75.2 fL (80.0-94.0); MEAN PLATELET VOLUME 8.6 fl (7.4-10.4); NEUTROPHILS % 81.8 % (40.0-76.0); PLATELET 183 x1000/uL (130-400); RED BLOOD CELL COUNT 4.36 mill/uL (4.7-6.1); RED CELL DISTRIBUTION WIDTH 21.5 % (11.6-14.6)
[2020-02-06 23:51] LABS: CHLORIDE 95 mEq/L (98-107)
[2020-02-06 23:54] LABS: INR 1.1
[2020-02-07] VITALS (23 sets, daily range): BP systolic 112–164; BP diastolic 68–112
[2020-02-07] MEDS ORDERED: DEXTROSE 50% WATER 50ML SYRINGE IV ONE (00:30)
[2020-02-07] MEDS ORDERED: SODIUM BICARBONATE 8.4% 1 MEQ/ML 50ML SYR IV ONE (00:30)
[2020-02-07] MEDS ORDERED: INSULIN REGULAR (HUMULIN R) 300UNITS/3ML IV ONE (00:30)
[2020-02-07] MEDS ORDERED: CALCIUM CHLORIDE 1GM/10ML SYR IV ONE (00:30)
[2020-02-07] MEDS ORDERED: HYDRALAZINE 20MG/ML VIAL IV ONE (01:15)
[2020-02-07] MEDS ORDERED: ENAL20TA MT (03:32)
[2020-02-07] MEDS ORDERED: HYDR100T26 MT (03:32)
[2020-02-07] MEDS ORDERED: FURO40TA5 MT (03:32)
[2020-02-07] MEDS ORDERED: DILT90TA2 MT (03:32)
[2020-02-07] MEDS ORDERED: APIX5TAB MT (03:32)
[2020-02-07] MEDS ORDERED: MORPHINE SULFATE 2 MG/ML CPJ (NOT FOR IM USE) IV PRN (03:45)
[2020-02-07] MEDS ORDERED: CLONIDINE 0.1MG TABLET PO PRN (03:45)
[2020-02-07] MEDS: HYDRALAZINE HCL 100MG TABLET PO SCH ×3 (05:50→22:12)
[2020-02-07] MEDS: DILTIAZEM HCL 90MG TABLET PO SCH ×3 (05:55→17:34)
[2020-02-07] MEDS ORDERED: ALBUTEROL 6.7GM HFA INHALER ORI PRN (08:45)
[2020-02-07 08:48] LABS: BASOPHILS % 0.7 % (0.0-2.0); EOSINOPHILS % 0.5 % (0.0-5.0); HEMATOCRIT. 30.4 % (42.0-52.0); LYMPHOCYTES % 9.5 % (20.0-50.0); MEAN CORPUSCULAR HEMOGLOBIN 24.8 pg (28.0-32.0); MEAN CORPUSCULAR VOLUME 75.9 fL (80.0-94.0); MEAN PLATELET VOLUME 8.2 fl (7.4-10.4); MONOCYTES % 7.1 % (2.0-8.0); NEUTROPHILS % 82.2 % (40.0-76.0); PLATELET 172 x1000/uL (130-400)
[2020-02-07] MEDS: METOPROLOL TARTRATE 50MG TABLET PO SCH ×2 (09:00→21:09)
[2020-02-07] MEDS: AZITHROMYCIN 500 MG TABLET PO SCH (09:00)
[2020-02-07] MEDS: FERROUS SULFATE 325MG TABLET PO SCH (09:00)
[2020-02-07] MEDS: CEFTRIAXONE 1 G PREMIX 50 ML IV SCH (10:00)
[2020-02-07 10:35] LABS: BG CARBOXYHEMOGLOBIN 0.4 % (0.5-1.5); BG DEOXYHEMOGLOBIN 5.8 % (0.0-5.0); BG FRACTION INSPIRED OXYGEN 60; BG HCO3 ACT 27.8 mmol/L (22.0-26.0); BG METHEMOGLOBIN 0.3 % (0.0-1.5); BG OXYGEN SATURATION 94.2 % (92.0-98.5); BG OXYHEMOGLOBIN 93.5 % (94.0-97.0); BG PCO2 38.3 mmHg (35.0-45.0); BG PH 7.478 (7.350-7.450); BG PO2 75.5 mmHg (75.0-100.0); BG SAMPLE SITE RIGHT RADIAL; BG TOTAL HEMOGLOBIN 11.1 g/dL (12.0-18.0); BG VENT MODE MASK - SIMPLE
[2020-02-07] MEDS: ENOXAPARIN 30MG/0.3ML SYR SUBCUT SCH (11:15)
[2020-02-07 11:21] LABS: PLATELET ESTIMATE NORMAL
[2020-02-07] MEDS: MORPHINE SULFATE 2 MG/ML CPJ (NOT FOR IM USE) IV PRN ×2 (11:50→17:58)
[2020-02-07] MEDS: ATORVASTATIN CALCIUM 10MG TABLET PO SCH (16:02)
[2020-02-07] MEDS ORDERED: ALBUTEROL (0.083%) 2.5MG/3ML NEB HHN PRN (22:30)
[2020-02-08] MEDS: DILTIAZEM HCL 90MG TABLET PO SCH ×5 (00:32→23:57)
[2020-02-08] MEDS: MORPHINE SULFATE 2 MG/ML CPJ (NOT FOR IM USE) IV PRN ×3 (00:32→17:16)
[2020-02-08 04:30] VITALS: BP 91/69
[2020-02-08] MEDS: HYDRALAZINE HCL 100MG TABLET PO SCH (05:18)
[2020-02-08 07:31] LABS: BASOPHILS % 1.1 % (0.0-2.0); HEMATOCRIT. 32.7 % (42.0-52.0); HEMOGLOBIN. 10.8 g/dL (14.0-18.0); LYMPHOCYTES % 14.3 % (20.0-50.0); MEAN CORPUSCULAR VOLUME 75.9 fL (80.0-94.0); MEAN PLATELET VOLUME 8.7 fl (7.4-10.4); MONOCYTES % 8.7 % (2.0-8.0); NEUTROPHILS % 73.9 % (40.0-76.0); PLATELET 163 x1000/uL (130-400); RED CELL DISTRIBUTION WIDTH 21.7 % (11.6-14.6)
[2020-02-08 08:00] VITALS: BP 142/86
[2020-02-08] MEDS: METOPROLOL TARTRATE 50MG TABLET PO SCH ×2 (09:00→21:41)
[2020-02-08] MEDS: ENOXAPARIN 30MG/0.3ML SYR SUBCUT SCH (09:00)
[2020-02-08] MEDS: AZITHROMYCIN 500 MG TABLET PO SCH (09:00)
[2020-02-08] MEDS: FERROUS SULFATE 325MG TABLET PO SCH (09:00)
[2020-02-08] MEDS: CEFTRIAXONE 1 G PREMIX 50 ML IV SCH ×2 (10:00→10:52)
[2020-02-08 12:00] VITALS: BP 117/89
[2020-02-08] MEDS: HYDRALAZINE HCL 50MG TABLET PO SCH ×2 (14:05→21:41)
[2020-02-08] MEDS ORDERED: ALBU18HF2 IH (15:45)
[2020-02-08] MEDS ORDERED: LEVO500T2 MT (15:45)
[2020-02-08 16:00] VITALS: BP 169/98
[2020-02-08] MEDS: ATORVASTATIN CALCIUM 10MG TABLET PO SCH (17:15)
[2020-02-08 20:00] VITALS: BP 152/85
[2020-02-09] VITALS: BP 141/100
[2020-02-09] MEDS: MORPHINE SULFATE 2 MG/ML CPJ (NOT FOR IM USE) IV PRN ×2 (00:09→06:51)
[2020-02-09 04:00] VITALS: BP 133/99
[2020-02-09] MEDS: HYDRALAZINE HCL 50MG TABLET PO SCH ×3 (06:49→21:07)
[2020-02-09] MEDS: DILTIAZEM HCL 90MG TABLET PO SCH ×4 (06:50→23:54)
[2020-02-09 08:00] VITALS: BP 130/96
[2020-02-09] MEDS: METOPROLOL TARTRATE 50MG TABLET PO SCH ×2 (09:10→21:07)
[2020-02-09] MEDS: AZITHROMYCIN 500 MG TABLET PO SCH (09:10)
[2020-02-09] MEDS: CEFTRIAXONE 1 G PREMIX 50 ML IV SCH (09:10)
[2020-02-09] MEDS: FERROUS SULFATE 325MG TABLET PO SCH (09:10)
[2020-02-09] MEDS: ENOXAPARIN 30MG/0.3ML SYR SUBCUT SCH (09:11)
[2020-02-09 12:00] VITALS: BP 138/96
[2020-02-09] MEDS: HYDROCODONE/ACETAMINOPHEN 10/325MG TABLET PO PRN ×2 (14:08→21:06)
[2020-02-09 16:00] VITALS: BP 102/75
[2020-02-09] MEDS: ATORVASTATIN CALCIUM 10MG TABLET PO SCH (17:09)
[2020-02-09 20:00] VITALS: BP 125/76
[2020-02-10] VITALS: BP 122/95
[2020-02-10 04:05] VITALS: BP 120/91
[2020-02-10] MEDS: DILTIAZEM HCL 90MG TABLET PO SCH ×2 (05:29→13:47)
[2020-02-10] MEDS: HYDRALAZINE HCL 50MG TABLET PO SCH ×2 (05:30→14:00)
[2020-02-10] MEDS: HYDROCODONE/ACETAMINOPHEN 10/325MG TABLET PO PRN (05:31)
[2020-02-10 08:00] VITALS: BP 126/96
[2020-02-10 08:03] LABS: BASOPHILS % 1.4 % (0.0-2.0); HEMATOCRIT. 32.2 % (42.0-52.0); HEMOGLOBIN. 10.5 g/dL (14.0-18.0); LYMPHOCYTES % 15.6 % (20.0-50.0); MEAN CORPUSCULAR HEMOGLOBIN 24.9 pg (28.0-32.0); MEAN CORPUSCULAR VOLUME 76.6 fL (80.0-94.0); MEAN PLATELET VOLUME 8.8 fl (7.4-10.4); MONOCYTES % 8.9 % (2.0-8.0); NEUTROPHILS % 72.1 % (40.0-76.0); PLATELET 164 x1000/uL (130-400); RED BLOOD CELL COUNT 4.21 mill/uL (4.7-6.1); RED CELL DISTRIBUTION WIDTH 21.4 % (11.6-14.6)
[2020-02-10] MEDS: METOPROLOL TARTRATE 50MG TABLET PO SCH (09:00)
[2020-02-10] MEDS: ENOXAPARIN 30MG/0.3ML SYR SUBCUT SCH (09:00)
[2020-02-10] MEDS: CEFTRIAXONE 1 G PREMIX 50 ML IV SCH ×2 (09:27→10:00)
[2020-02-10] MEDS: AZITHROMYCIN 500 MG TABLET PO SCH (09:27)
[2020-02-10] MEDS: FERROUS SULFATE 325MG TABLET PO SCH (09:27)
[2020-02-10 11:32] VITALS: BP 128/68
[2020-02-10 12:00] VITALS: BP 128/68
== END 2020-02-10 15:02 | disposition home or self-care (01) | DRG 133 ==
LOC: ER 20:39 → EDBEDREQTM 02-07 01:05 → EDBEDREQSVC 02-07 01:05 → ENRESERV 02-07 02:38 → MICUSO 02-07 03:41 → 6WST 02-07 22:25
PROVIDERS: ADMIT Internal Medicine; ATTEND Internal Medicine
PROC: 5A1D70Z Performance of Urinary Filtration, Intermittent, Less than 6 Hours Per Day (ICD-10-PCS; principal; 2020-02-07)
PROC: 5A1D70Z Performance of Urinary Filtration, Intermittent, Less than 6 Hours Per Day (ICD-10-PCS; 2020-02-08)
PROC: 5A1D70Z Performance of Urinary Filtration, Intermittent, Less than 6 Hours Per Day (ICD-10-PCS; 2020-02-10)
DX: J96.21 Acute and chronic respiratory failure with hypoxia (principal); I13.2 Hypertensive heart and chronic kidney disease with heart failure and with stage 5 chronic kidney disease, or end stage renal disease; I27.20 Pulmonary hypertension, unspecified; E87.8 Other disorders of electrolyte and fluid balance, not elsewhere classified; E87.5 Hyperkalemia; E87.1 Hypo-osmolality and hyponatremia; N18.6 End stage renal disease; I50.32 Chronic diastolic (congestive) heart failure; I48.91 Unspecified atrial fibrillation; F20.9 Schizophrenia, unspecified; I50.33 Acute on chronic diastolic (congestive) heart failure; F31.9 Bipolar disorder, unspecified; I36.1 Nonrheumatic tricuspid (valve) insufficiency; Z20.828 Contact with and (suspected) exposure to other viral communicable diseases; D64.9 Anemia, unspecified; Z99.2 Dependence on renal dialysis; Z88.8 Allergy status to other drugs, medicaments and biological substances; Z79.899 Other long term (current) drug therapy
CPT/HCPCS: 36415; 36600; 71045; 78582; 80048; 80053; 82375; 82805; 83605; 83880; 84132; 84145; 84484; 85025; 85379; 93005; 96374; 99291; A9558; J0360; J0696; J1650; J1815; J2270; J3490; U0003-CS